=== PATIENT | female | born 1990 | race Hispanic/Latino ===

== ENCOUNTER 2018-03-17 07:47 | Emergency (ER) | payer SELFPAY ==
[2018-03-17] MEDS ORDERED: ONDANSETRON 4 MG (ODT) TAB ONE (08:00)
--- NOTE | 2018-03-17 08:27 | EDPHYS ---
Physician Documentation [facility] Name: Edith Troy Age: 27 yrs Sex: Female : 1990 Arrival Date: 03/17/2018 Time: 07:50 Bed 5 Private MD: None, None ED Physician Fuad Fuentes HPI: 03/17 07:59 This 27 yrs old Female presents to ER via Unassigned with complaints of rn Abdominal Pain, Diarrhea. 07:59 The patient presents to the emergency department with nausea, vomiting, diarrhea, rn abdominal pain, of the epigastric area and abdomen diffusely. Onset: The symptoms/episode began/occurred 2 day(s) ago. Possible causes: unknown. Associated signs and symptoms: Pertinent positives: abdominal pain, diarrhea, nausea, vomiting, Pertinent negatives: fever, GI bleeding. Severity of symptoms: At their worst the symptoms were mild in the emergency department the symptoms are unchanged. The patient has experienced similar episodes in the past. Reports nausea/vomiting/diarrhea, mild upper abd pain that moves everywhere, describes as cramping, intermittent, states feels like has stomach virus but came here because for her job needs a doctors note or she will get fired for not going to work, pain not worse with walking or change in position. . 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 tw2 Historical: - Allergies: 08:03 NKDA; tw2 - Home Meds: 08:03 None [Active]; tw2 - PMHx: 08:03 Asthma; tw2 - PSHx: 08:03 Cholecystectomy; tw2 - Immunization history:: Adult Immunizations up to date. - Family history:: not pertinent. - Social history:: Smoking status: Patient/guardian denies using tobacco. - Hospitalizations: : No recent hospitalization is reported. ROS: 07:59 Constitutional: Negative for fever, chills, and weight loss, Eyes: Negative for injury, rn pain, redness, and discharge, Neck: Negative for injury, pain, and swelling, Cardiovascular: Negative for chest pain, palpitations, and edema, Respiratory: Negative for shortness of breath, cough, wheezing, and pleuritic chest pain, Abdomen/GI: + abd pain/nausea/vomiting/diarrhea MS/Extremity: Negative for injury and deformity, Skin: Negative for injury, rash, and discoloration, Neuro: Negative for headache, weakness, numbness, tingling, and seizure. Exam: 07:59 Constitutional: This is a well developed, well nourished patient who is awake, alert, rn and in no acute distress. Head/Face: Normocephalic, atraumatic. Eyes: Pupils equal round and reactive to light, extra-ocular motions intact. Lids and lashes normal. Conjunctiva and sclera are non-icteric and not injected. Cornea within normal limits. Periorbital areas with no swelling, redness, or edema. Cardiovascular: Regular rate. No gallops, murmurs, or rubs. Respiratory: Lungs have equal breath sounds bilaterally, clear to auscultation. No increased work of breathing, no retractions or nasal flaring. Abdomen/GI: soft, mild epigastric abd tenderness, no rebound, no peritoneal signs, no masses Skin: Warm, dry with normal turgor. Normal color with no rashes, no lesions, and no evidence of cellulitis. MS/ Extremity: Pulses equal, no cyanosis. Neurovascular intact. Full, normal range of motion. Equal circumference. Neuro: Awake and alert, GCS 15, oriented to person, place, time, and situation. Cranial nerves II-XII grossly intact. Motor strength 5/5 in all extremities. Sensory grossly intact. Vital Signs: 07:59 BP 147 / 88; Pulse 87; Resp 16; Temp 97.7(O); Pulse Ox 100% on R/A; Pain 3/10; hb 08:30 BP 126 / 82; Pulse 77; Resp 17; Pulse Ox 100% on R/A; tw2 MDM: 07:51 Patient medically screened. rn 08:24 Differential diagnosis: Nonspecific abd pain, gastritis, viral gastroenteritis, rn gastroenteritis. Data reviewed: vital signs, nurses notes, lab test result(s), and as a result, I will discharge patient. Counseling: I had a detailed discussion with the patient and/or guardian regarding: the historical points, exam findings, and any diagnostic results supporting the discharge/admit diagnosis, lab results, the need for outpatient follow up, to return to the emergency department if symptoms worsen or persist or if there are any questions or concerns that arise at home. Special discussion: Based on the patient's Hx, exam, and Dx evaluation, there is no indication for emergent surgery or inpatient Tx. It is understood by the patient/guardian that if the Sx's persist or worsen they need to return immediately for re-evaluation. I discussed with the patient/guardian in detail that at this point there is no indication for admission to the hospital. It is understood, however, that if the symptoms persist or worsen the patient needs to return immediately for re-evaluation. ED course: Pt reports mild burning on urination, last cycle 2 weeks ago, UPT neg, no peritoneal signs on exam, story and exam more consistent with gastroenteritis, will prescribe abx for UTI, and dc with zofran and return precautions. . 03/17 08:16 Order name: Urine Dipstick--Ancillary (enter results) [facility] 03/17 08:16 Order name: Urine --Ancillary (enter results) [facility] 03/17 07:59 Order name: Urine Dipstick-Ancillary (obtain specimen); Complete Time: 08:07 rn 03/17 07:59 Order name: Urine Test (obtain specimen); Complete Time: 08:07 rn Administered Medications: 08:05 Drug: Zofran 4 mg Route: PO; tw2 08:31 Follow up: Response: No adverse reaction; Nausea is decreased tw2 Disposition: 03/17/18 08:26 Discharged to Home. Impression: Upper abdominal pain, unspecified, Vomiting, Diarrhea, unspecified, Urinary tract infection, site not specified. - Condition is Stable. - Discharge Instructions: Abdominal Pain, Adult, Diarrhea, Nausea and Vomiting, Urinary Tract Infection, Viral Gastroenteritis. - Prescriptions for Zofran ODT 4 mg Oral tablet,disintegrating - place 1 tablet by TRANSLINGUAL route every 8-10 hours As needed; 20 tablet. Cipro 500 mg Oral Tablet - take 1 tablet by ORAL route every 12 hours for 7 days; 14 tablet. - Medication Reconciliation Form, Thank You Letter, Antibiotic Education, Prescription Opioid Use, Work release form form. - Follow up: Private Physician; When: As needed; Reason: Recheck today's complaints, Re-evaluation by your physician. - Problem is new. - Symptoms have improved. Signatures: Dispatcher [employer] EDMS Fuad Fuentes MD MD rn Wise, Tara, RN RN tw2
--- NOTE | 2018-03-17 08:27 | ER ---
Nurse's Notes [facility] Name: Edith Troy Age: 27 yrs Sex: Female : 1990 Arrival Date: 03/17/2018 Time: 07:50 Bed 5 Private MD: None, None Diagnosis: Upper abdominal pain, unspecified;Vomiting;Diarrhea, unspecified;Urinary tract infection, site not specified Presentation: 03/17 08:01 Presenting complaint: Patient states: N/D and abdominal cramping x 2 days. Transition hb of care: patient was not received from another setting of care. Onset of symptoms was March 16, 2018. Initial Sepsis Screen: Does the patient meet any 2 criteria? No. Patient's initial sepsis screen is negative. Does the patient have a suspected source of infection? No. Patient's initial sepsis screen is negative. Care prior to arrival: None. 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 tw2 Historical: - Allergies: 08:03 NKDA; tw2 - Home Meds: 08:03 None [Active]; tw2 - PMHx: 08:03 Asthma; tw2 - PSHx: 08:03 Cholecystectomy; tw2 - Immunization history:: Adult Immunizations up to date. - Family history:: not pertinent. - Social history:: Smoking status: Patient/guardian denies using tobacco. - Hospitalizations: : No recent hospitalization is reported. Screenin:01 Abuse screen: Denies threats or abuse. Nutritional screening: No deficits noted. tw2 Tuberculosis screening: No symptoms or risk factors identified. Fall Risk None identified. Assessment: 08:03 General: Appears in no apparent distress. obese, Behavior is calm, cooperative, tw2 appropriate for age. Pain: Complains of pain in abdomen diffusely. Neuro: Level of Consciousness is awake, alert, obeys commands, Oriented to person, place, time, situation. Cardiovascular: Denies chest pain, shortness of breath, Heart tones S1 S2 Capillary refill < 3 seconds Patient's skin is warm and dry. Respiratory: Airway is patent Respiratory effort is even, unlabored, Respiratory pattern is regular, symmetrical, Breath sounds are clear bilaterally. GI: Bowel sounds present X 4 quads. Abd is soft X 4 quads Reports nausea. : No signs and/or symptoms were reported regarding the genitourinary system. EENT: No signs and/or symptoms were reported regarding the EENT system. Derm: No signs and/or symptoms reported regarding the dermatologic system. Skin is intact, is healthy with good turgor, Skin temperature is warm. Musculoskeletal: Range of motion: intact in all extremities. 08:30 Reassessment: Patient appears in no apparent distress at this time. No changes from tw2 previously documented assessment. Patient and/or family updated on plan of care and expected duration. Pain level reassessed. Patient is alert, oriented x 3, equal unlabored respirations, skin warm/dry/pink. Patient states feeling better. Vital Signs: 07:59 BP 147 / 88; Pulse 87; Resp 16; Temp 97.7(O); Pulse Ox 100% on R/A; Pain 3/10; hb 08:30 BP 126 / 82; Pulse 77; Resp 17; Pulse Ox 100% on R/A; tw2 ED Course: 07:50 Patient arrived in ED. mr 07:50 None, None is Private Physician. mr 07:51 Fuad Fuentes MD is Attending Physician. rn 08:01 Bed in low position. Call light in reach. Pulse ox on. NIBP on. tw2 08:02 Triage completed. hb 08:04 Arm band placed on. tw2 08:04 No provider procedures requiring assistance completed. Patient did not have IV access tw2 during this emergency room visit. 08:06 Sydnie Wyatt, RN is Primary Nurse. tw2 Administered Medications: 08:05 Drug: Zofran 4 mg Route: PO; tw2 08:31 Follow up: Response: No adverse reaction; Nausea is decreased tw2 Outcome: 08:26 Discharge ordered by . rn 08:31 Discharged to home ambulatory. tw2 08:31 Condition: stable 08:31 Discharge instructions given to patient, Instructed on discharge instructions, follow up and referral plans. medication usage, Demonstrated understanding of instructions, follow-up care, medications, Prescriptions given X 2. 08:31 Patient left the ED. tw2 Signatures: Gemma Babb Fuad Fuentes MD MD rn Baxter, Heather, RN RN hb Wise, Tara, RN RN tw2 Corrections: (The following items were deleted from the chart) 08:00 08:00 General: Appears hb hb
[2018-03-17 08:46] VITALS: TEMP 97.7; O2SAT 100
[2018-03-17 08:48] VITALS: BP 126/82
[2018-03-17 09:54] LABS: Urine Blood 2+ (NEG); Urine Glucose NEGATIVE (NEG); Urine Protein 2+ (NEG); Urine Specific Gravity >1.030 (1.005-1.030); Urine pH 5.5 (5.0-7.0)
== END 2018-03-17 08:31 | disposition home or self-care (01) ==
LOC: ER 07:47
DX: N39.0 Urinary tract infection, site not specified (principal); R11.10 Vomiting, unspecified; R19.7 Diarrhea, unspecified
CPT/HCPCS: 81003; 81025; 99283

== ENCOUNTER 2018-07-06 17:21 | Emergency (ER) | payer SELFPAY ==
[2018-07-06] MEDS ORDERED: KETOROLAC 30 MG/ML INJ ONE (18:30)
[2018-07-06] MEDS ORDERED: ONDANSETRON 4 MG/2 ML VIAL ONE (18:31)
[2018-07-06] MEDS ORDERED: NA CHLORIDE 0.9% 1,000 ML ONE (18:31)
[2018-07-06 19:03] LABS: BUN Blood Urea Nitrogen 7 mg/dL (7-18); Bicarbonate 25 mmol/L (21-32); Glucose Level 107 mg/dL (74-106); Potassium 3.9 mmol/L (3.5-5.1); Sodium Level 140 mmol/L (136-145)
[2018-07-06 19:09] LABS: Absolute Lymphocytes (CBC) 1.9 K/uL (0.7-4.9); Absolute Monocytes 0.6 K/uL (0.1-1.3); Absolute Neutrophil 5.7 K/uL (1.8-8.0); Basophils % 0.5 % (0-1.3); Eosinophils % 1.6 % (0-4.4); Hematocrit 37.3 % (36.0-45.0); Lymphocytes % 22.6 % (15.3-44.8); MCH 28.7 pg (27.0-35.0); MCV 85.6 fL (80-100); MPV 8.7 fL (7.6-11.3); Monocytes % 7.6 % (3.3-12.3); RBC Red Blood Cell Count 4.36 M/uL (3.86-4.86)
[2018-07-06] MEDS ORDERED: CEFTRIAXONE/SWI 1gm 1 GM/10 ML SYR ONE (19:23)
[2018-07-06 19:25] LABS: Urine Blood TRACE (NEG); Urine Glucose NEGATIVE (NEG); Urine Protein NEGATIVE (NEG); Urine Specific Gravity >1.030 (1.005-1.030)
--- NOTE | 2018-07-06 19:31 | RAD REPORT ---
EXAM DESCRIPTION: CT - Stone Protocol - 07/06/2018 7:09 pm CLINICAL HISTORY: Abdominal pain, flank pain, vaginal pressure, urinary frequency COMPARISON: None. TECHNIQUE: Axial 5 mm thick images were obtained without oral or IV contrast. The [id number] span s the entirety of the system partially obscuring uppermost abdomen and lung bases. All CT scans are performed using dose optimization technique as appropriate and may include automated exposure control or mA/KV adjustment according to patient size. FINDINGS: No hydronephrosis is present and no obstructing ureteral calculi. No suspicious renal mass es. Isodense masses and pyelonephritis are not excluded on a stone protocol CT scan. Urinary bladder is mostly contracted limiting assessment. No bladder calculi. Uterus and ovaries show no suspicious f indings. No fallopian tube dilatation. Pelvic floor phleboliths are present. Imaged portions of the liver, spleen and pancreas show no suspicious findings on non-contrast imaging . Liver shows fatty infiltration attenuation. Cholecystectomy clips are present. No biliary tree dila tation. No significant adrenal finding. No suspicious bowel findings. No hernia, mass or bulky lymphadenopathy noted. No free air, free fluid or inflammatory stranding. No significant bony abnormality. IMPRESSION: No hydronephrosis, obstructing calculus or other acute finding. Bladder is only parti ally filled limiting assessment. Isodense masses and pyelonephritis are not excluded on stone protocol technique. No acute GI process. Liver shows fatty infiltration.
--- NOTE | 2018-07-06 20:07 | EDPHYS ---
Physician Documentation [facility] Name: Edith Troy Age: 27 yrs Sex: Female : 1990 Arrival Date: 07/06/2018 Time: 17:24 Bed 2 Private MD: None, None ED Physician Amilcar Rodriguez HPI: 07/06 18:59 This 27 yrs old Female presents to ER via Ambulatory with complaints of amy Vaginal Bleeding, Low Back Pain. 18:59 The patient presents with flank pain, on the right, pelvic pain, that is located in/on amy the suprapubic area, vaginal bleeding that is light, moderate. Onset: The symptoms/episode began/occurred 3 day(s) ago. Modifying factors: The symptoms are alleviated by nothing, the symptoms are aggravated by nothing. Associated signs and symptoms: The patient has no apparent associated signs or symptoms. Severity of symptoms: At their worst the symptoms were mild, moderate, in the emergency department the symptoms are unchanged. The patient has not experienced similar symptoms in the past. 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 - Social history:: Smoking status: Patient/guardian denies using tobacco. - Ebola Screening: : No symptoms or risks identified at this time. - Family history:: not pertinent. ROS: 18:59 Constitutional: Negative for fever, chills, and weight loss, Eyes: Negative for injury, amy pain, redness, and discharge, ENT: Negative for injury, pain, and discharge, Neck: Negative for injury, pain, and swelling, Cardiovascular: Negative for chest pain, palpitations, and edema, Respiratory: Negative for shortness of breath, cough, wheezing, and pleuritic chest pain, : Negative for injury, bleeding, discharge, and swelling, MS/Extremity: Negative for injury and deformity, Skin: Negative for injury, rash, and discoloration, Neuro: Negative for headache, weakness, numbness, tingling, and seizure, Psych: Negative for depression, anxiety, suicide ideation, homicidal ideation, and hallucinations, Allergy/Immunology: Negative for hives, rash, and allergies, Endocrine: Negative for neck swelling, polydipsia, polyuria, polyphagia, and marked weight changes, Hematologic/Lymphatic: Negative for swollen nodes, abnormal bleeding, and unusual bruising. 18:59 Abdomen/GI: Positive for abdominal pain, of the suprapubic area and posterior aspect of right lateral abdomen. Exam: 18:59 Constitutional: This is a well developed, well nourished patient who is awake, alert, amy and in no acute distress. Head/Face: Normocephalic, atraumatic. Eyes: Pupils equal round and reactive to light, extra-ocular motions intact. Lids and lashes normal. Conjunctiva and sclera are non-icteric and not injected. Cornea within normal limits. Periorbital areas with no swelling, redness, or edema. ENT: Nares patent. No nasal discharge, no septal abnormalities noted. Tympanic membranes are normal and external auditory canals are clear. Oropharynx with no redness, swelling, or masses, exudates, or evidence of obstruction, uvula midline. Mucous membranes moist. Neck: Trachea midline, no thyromegaly or masses palpated, and no cervical lymphadenopathy. Supple, full range of motion without nuchal rigidity, or vertebral point tenderness. No Meningismus. Chest/axilla: Normal chest wall appearance and motion. Nontender with no deformity. No lesions are appreciated. Cardiovascular: Regular rate and rhythm with a normal S1 and S2. No gallops, murmurs, or rubs. Normal PMI, no JVD. No pulse deficits. Respiratory: Lungs have equal breath sounds bilaterally, clear to auscultation and percussion. No rales, rhonchi or wheezes noted. No increased work of breathing, no retractions or nasal flaring. Female : Normal external genitalia. Skin: Warm, dry with normal turgor. Normal color with no rashes, no lesions, and no evidence of cellulitis. MS/ Extremity: Pulses equal, no cyanosis. Neurovascular intact. Full, normal range of motion. Neuro: Awake and alert, GCS 15, oriented to person, place, time, and situation. Cranial nerves II-XII grossly intact. Motor strength 5/5 in all extremities. Sensory grossly intact. Cerebellar exam normal. Normal gait. 18:59 Abdomen/GI: Inspection: abdomen appears normal, Bowel sounds: normal, Palpation: mild abdominal tenderness, in the suprapubic area. Vital Signs: 17:49 BP 134 / 93; Pulse 95; Resp 16 S; Temp 98.4(O); Pulse Ox 98% on R/A; Weight 96.62 kg 7 (R); Height 5 ft. 5 in. (165.10 cm) (R); Pain 8/10; 19:41 BP 116 / 84; Pulse 84; Resp 18; Temp 98; Pulse Ox 98% on R/A; Pain 4/10; ea 20:49 BP 118 / 77; Pulse 78; Resp 16; Pulse Ox 99% ; bp 17:49 Body Mass Index 35.44 (96.62 kg, 165.10 cm) 7 MDM: 18:14 Patient medically screened. [facility] 19:04 Data reviewed: vital signs, nurses notes, lab test result(s), radiologic studies, CT amy scan, ultrasound. 07/06 18:17 Order name: Abo/rh Typing; Complete Time: 19:48 [facility] 07/06 18:17 Order name: Basic Metabolic Panel; Complete Time: 19:48 [facility] 07/06 18:17 Order name: CBC with Diff; Complete Time: 19:48 [facility] 07/06 18:18 Order name: Urine Dipstick--Ancillary (enter results); Complete Time: 19:48 07/06 18:18 Order name: Urine --Ancillary (enter results); Complete Time: 19:48 07/06 18:59 Order name: Urine Culture [facility] 07/06 18:17 Order name: Urine Test (obtain specimen); Complete Time: 18:23 [facility] 07/06 18:17 Order name: US Transvaginal Study (Probe); Complete Time: 20:30 [facility] 07/06 18:59 Order name: CT Stone Protocol; Complete Time: 19:48 [facility] 07/06 19:05 Order name: Test, Serum; Complete Time: 19:48 [facility] 07/06 18:17 Order name: IV Saline Lock; Complete Time: 18:34 [facility] 07/06 18:17 Order name: Labs collected and sent; Complete Time: 18:34 [facility] 07/06 18:17 Order name: NPO; Complete Time: 18:34 [facility] 07/06 18:17 Order name: Urine Dipstick-Ancillary (obtain specimen); Complete Time: 18:23 [facility] Administered Medications: 18:34 Drug: NS 0.9% 1000 ml Route: IV; Rate: 1 bolus; Site: right forearm; mg2 20:51 Follow up: IV Status: Completed infusion; IV Intake: 1000ml bp 18:34 Drug: TORadol 30 mg Route: IVP; Site: right forearm; mg2 20:51 Follow up: Response: Pain is decreased bp 18:34 Drug: Zofran 4 mg Route: IVP; Site: right forearm; mg2 20:50 Follow up: Response: Nausea is decreased bp 20:02 Drug: Rocephin - (cefTRIAXone) 1 grams Route: IVPB; Infused Over: 30 mins; Site: right ea antecubital; 20:50 Follow up: IV Status: Completed infusion bp Disposition: 07/06/18 20:07 Discharged to Home. Impression: Pelvic and perineal pain, Abnormal uterine and vaginal bleeding, unspecified, Dysmenorrhea, unspecified. - Condition is Stable. - Discharge Instructions: Abnormal Uterine Bleeding, Dysmenorrhea, Pelvic Pain, Female, Pelvic Pain, Female, [id number], Pelvic Rest, Dysmenorrhea, [id number]. - Prescriptions for Tylenol- Codeine #3 300-30 mg Oral Tablet - take 2 tablets by ORAL route every 6 hours As needed; 26 tablet. Cipro 500 mg Oral Tablet - take 1 tablet by ORAL route every 12 hours for 7 days; 14 tablet. Motrin IB 200 mg Oral Tablet - take 2 tablet by ORAL route every 6 hours As needed as needed with food; 30 tablet. - Medication Reconciliation Form, Thank You Letter, Antibiotic Education, Prescription Opioid Use form. - Follow up: Private Physician; When: 2 - 3 days; Reason: Recheck today's complaints, Continuance of care, Re-evaluation by your physician. Follow up: Mini Rekhi; When: 2 - 3 days; Reason: Recheck today's complaints, Re-evaluation by your physician. - Problem is new. - Symptoms have improved. Signatures: Dispatcher [employer] EDAmilcar Ba MD MD cha Therrien, Shelly, RECREATIONAL LEADER-C RECREATIONAL LEADER-Csnw Vicky Venegas RN RN jl7 Marisabel Barrios RN RN Pipe Felix, RN RN bp Virgilio Torres, RN RN mg2 Corrections: (The following items were deleted from the chart) 20:52 20:07 07/06/2018 20:07 Discharged to Home. Impression: Pelvic and perineal pain; bp Abnormal uterine and vaginal bleeding, unspecified; Dysmenorrhea, unspecified. Condition is Stable. Discharge Instructions: Abnormal Uterine Bleeding, Dysmenorrhea, Pelvic Pain, Female, Pelvic Pain, Female, [id number], Dysmenorrhea, [id number]-[id number], Pelvic Rest. Prescriptions for Tylenol-Codeine #3 300-30 mg Oral Tablet - take 2 tablets by ORAL route every 6 hours As needed; 26 tablet, Cipro 500 mg Oral Tablet - take 1 tablet by ORAL route every 12 hours for 7 days; 14 tablet, Motrin IB 200 mg Oral Tablet - take 2 tablet by ORAL route every 6 hours As needed as needed with food; 30 tablet. and Forms are Medication Reconciliation Form, Thank You Letter, Antibiotic Education, Prescription Opioid Use. Follow up: Private Physician; When: 2 - 3 days; Reason: Recheck today's complaints, Continuance of care, Re-evaluation by your physician. Follow up: Mini Rekhi; When: 2 - 3 days; Reason: Recheck today's complaints, Re-evaluation by your physician. Problem is new. Symptoms have improved. snw
--- NOTE | 2018-07-06 20:07 | ER ---
Nurse's Notes [facility] Name: Edith Troy Age: 27 yrs Sex: Female : 1990 Arrival Date: 07/06/2018 Time: 17:24 Bed 2 Private MD: None, None Diagnosis: Pelvic and perineal pain;Abnormal uterine and vaginal bleeding, unspecified;Dysmenorrhea, unspecified Presentation: 07/06 17:45 Presenting complaint: Patient states: Period 2 weeks ago, then spotting for the past jl7 week then yesterday began feeling vaginal pressure and today my back has been hurting. Reports urinary frequency, right sided back pain. Transition of care: patient was not received from another setting of care. Onset of symptoms was July 05, 2018. Risk Assessment: Do you want to hurt yourself or someone else? Patient reports no desire to harm self or others. Initial Sepsis Screen: Does the patient meet any 2 criteria? No. Patient's initial sepsis screen is negative. Does the patient have a suspected source of infection? No. Patient's initial sepsis screen is negative. Care prior to arrival: None. 17:45 Method Of Arrival: Ambulatory [facility] 17:45 Acuity: TEJ 3 jl7 Triage Assessment: 17:49 General: Appears in no apparent distress. uncomfortable, Behavior is calm, cooperative, jl7 appropriate for age. Pain: Complains of pain in vagina Pain currently is 8 out of 10 on a pain scale. Quality of pain is described as pressure, Pain began 1 day ago. Is continuous. Neuro: Level of Consciousness is awake, alert, obeys commands, Oriented to person, place, time, situation. Cardiovascular: Patient's skin is warm and dry. Respiratory: Airway is patent Respiratory effort is even, unlabored, Respiratory pattern is regular, symmetrical. : Reports vaginal bleeding that is bright red, brown, spotty. Derm: Skin is pink, warm \T\ dry. [employer] WORK: 17:49 LMP 06/24/2018 jl7 18:59 2, Full Term 2, Premature 0, 0, Living 0 amy Historical: - Allergies: 17:49 NKDA; jl7 - Home Meds: 17:49 None [Active]; jl7 - PMHx: 17:49 Asthma; jl7 - PSHx: 17:49 Cholecystectomy; jl7 - Immunization history:: Adult Immunizations up to date. - Social history:: Smoking status: Patient/guardian denies using tobacco. - Ebola Screening: : No symptoms or risks identified at this time. - Family history:: not pertinent. Screenin:12 Abuse screen: Denies threats or abuse. Denies injuries from another. Nutritional mg2 screening: No deficits noted. Tuberculosis screening: No symptoms or risk factors identified. Fall Risk None identified. Assessment: 18:12 General: Appears in no apparent distress. comfortable, Behavior is calm, cooperative. mg2 Pain: Complains of pain in lower back Pain does not radiate. Pain currently is 8 out of 10 on a pain scale. Quality of pain is described as aching, Pain began gradually, 1 day ago. Is intermittent. Neuro: Level of Consciousness is awake, alert, obeys commands, Oriented to person, place, time, situation. Cardiovascular: Capillary refill < 3 seconds Patient's skin is warm and dry. Respiratory: Airway is patent Respiratory effort is even, unlabored, Respiratory pattern is regular, symmetrical. GI: No signs and/or symptoms were reported involving the gastrointestinal system. : Reports vaginal bleeding that is spotty. EENT: No signs and/or symptoms were reported regarding the EENT system. Derm: Skin is intact, Skin is pink, warm \T\ dry. normal. Musculoskeletal: Circulation, motion, and sensation intact. 19:05 Reassessment: Pt taken to CT. ea 19:15 Reassessment: Pt returned form CT. ea 19:20 Reassessment: Pt taken to ultrasound. ea 19:45 Reassessment:. General: Appears in no apparent distress. comfortable, Behavior is calm, ea cooperative, appropriate for age. Pain: Complains of pain in suprapubic area. Neuro: Level of Consciousness is awake, alert, obeys commands, Oriented to person, place, time, situation. Cardiovascular: Patient's skin is warm and dry. Respiratory: Airway is patent Respiratory effort is even, unlabored, Respiratory pattern is regular, symmetrical, Breath sounds are clear bilaterally. GI: No signs and/or symptoms were reported involving the gastrointestinal system. EENT: No signs and/or symptoms were reported regarding the EENT system. Derm: Skin is intact, Skin is pink, warm \T\ dry. 19:45 Musculoskeletal: Circulation, motion, and sensation intact. ea 20:48 Reassessment: PT D/C HOME AMBULATORY, DX WITH DYSMENORRHEA AND NONSPECIFIC PELVIC PAIN. bp Vital Signs: 17:49 BP 134 / 93; Pulse 95; Resp 16 S; Temp 98.4(O); Pulse Ox 98% on R/A; Weight 96.62 kg jl7 (R); Height 5 ft. 5 in. (165.10 cm) (R); Pain 8/10; 19:41 BP 116 / 84; Pulse 84; Resp 18; Temp 98; Pulse Ox 98% on R/A; Pain 4/10; ea 20:49 BP 118 / 77; Pulse 78; Resp 16; Pulse Ox 99% ; bp 17:49 Body Mass Index 35.44 (96.62 kg, 165.10 cm) jl7 ED Course: 17:24 Patient arrived in ED. sb2 17:24 None, None is Private Physician. sb2 17:49 Triage completed. jl7 17:49 Arm band placed on right wrist. jl7 18:06 Bed in low position. Call light in reach. Side rails up X 1. Warm blanket given. Pillow jp3 given. Pulse ox on. NIBP on. 18:06 Urine collected: clean catch specimen, clear, carmen colored. jp3 18:11 Virgilio Torres, GOMEZ is Primary Nurse. mg2 18:14 Amilcar Rodriguez MD is Attending Physician. amy 18:35 Inserted saline lock: 22 gauge in right forearm, using aseptic technique. Blood mg2 collected. by shampoo technician Price. 18:38 Initial lab(s) drawn, by ri, sent to lab. jp3 19:01 Patient moved to [place] via wheelchair. jg1 19:08 CT completed. Patient tolerated procedure well. Patient moved back from [place]. nj 19:09 CT Stone Protocol In Process Unspecified. EDMS 19:39 US Transvaginal Study (Probe) In Process Unspecified. EDMS 20:07 Zoila Lincoln MD is Referral Physician. snw 20:30 [facility]C [facility] snw 20:49 No provider procedures requiring assistance completed. IV discontinued, intact, bp bleeding controlled, No redness/swelling at site. Pressure dressing applied. Administered Medications: 18:34 Drug: NS 0.9% 1000 ml Route: IV; Rate: 1 bolus; Site: right forearm; mg2 20:51 Follow up: IV Status: Completed infusion; IV Intake: 1000ml bp 18:34 Drug: TORadol 30 mg Route: IVP; Site: right forearm; mg2 20:51 Follow up: Response: Pain is decreased bp 18:34 Drug: Zofran 4 mg Route: IVP; Site: right forearm; mg2 20:50 Follow up: Response: Nausea is decreased bp 20:02 Drug: Rocephin - (cefTRIAXone) 1 grams Route: IVPB; Infused Over: 30 mins; Site: right ea antecubital; 20:50 Follow up: IV Status: Completed infusion bp Intake: 20:51 IV: 1000ml; Total: 1000ml. bp Outcome: 20:07 Discharge ordered by . snw 20:49 Discharged to home ambulatory. bp 20:49 Condition: stable 20:49 Discharge instructions given to patient, Instructed on discharge instructions, follow up and referral plans. medication usage, Demonstrated understanding of instructions, follow-up care, medications, Prescriptions given X 3. 20:52 Patient left the ED. bp Signatures: Dispatcher [employer] EDMS Amilcar Rodriguez MD MD cha Therrien, Shelly, FLOAT TENDER-C FLOAT TENDER-Csnw Gricel Echeverria jAngel Medina Jahala, RN RN jl7 Marisabel Barrios RN Pipe Goetz ea, RN RN Maria Luz Garcia sb2 Virgilio Torres, GOMEZ RN mg2 Everett Roman jp3
--- NOTE | 2018-07-06 20:22 | RAD REPORT ---
EXAM DESCRIPTION: US - Transvaginal Study Probe - 07/06/2018 7:40 pm CLINICAL HISTORY: Abdominal pain, pelvic pain Preliminary findings provided at the time of the study. COMPARISON: None. TECHNIQUE: Endovaginal sonography was performed. FINDINGS: Endometrium is 2-3 mm. No focal endometrial abnormality. Uterus is 8.6 x 4.7 x 5.6 cm. No myometrial mass. No fluid or blood in the cul-de-sac. Both ovaries are normal in size. Normal for age follicles are seen in the ovaries. Doppler evaluation shows a normal ovarian stroma blood flow patte rn. IMPRESSION: Negative endovaginal pelvic ultrasound.
[2018-07-06 22:03] VITALS: TEMP 98
[2018-07-06 22:04] VITALS: BP 118/77; O2SAT 99
== END 2018-07-06 20:52 | disposition home or self-care (01) ==
LOC: ER 17:21
DX: N93.9 Abnormal uterine and vaginal bleeding, unspecified (principal); N94.6 Dysmenorrhea, unspecified
CPT/HCPCS: 36415; 74176; 76377; 76830; 80048; 81003; 81025; 84703; 85025; 86900; 86901; 87086; 87088; 96361; 96365; 96375; 99284; J0696; J2405; J7030

== ENCOUNTER 2018-09-30 10:11 | Emergency (ER) | payer SELFPAY ==
--- NOTE | 2018-09-30 12:50 | RAD REPORT ---
EXAM DESCRIPTION: RAD - Chest Pa And Lat (2 Views) - 09/30/2018 12:22 pm CLINICAL HISTORY: Dyspnea COMPARISON: None. TECHNIQUE: PA and lateral views of the chest were obtained. FINDINGS: The lungs are clear of infectious or aspiration pneumonia findings. No pulmonary edema or acute lung parenchymal process. Heart size is normal and central vasculature is within normal limit s. No pleural effusion or pneumothorax seen. No acute bony finding noted. No aortic abnormality. IMPRESSION: No acute cardiopulmonary process.
--- NOTE | 2018-09-30 12:51 | RAD REPORT ---
EXAM DESCRIPTION: RAD - Neck Soft Tissue - 09/30/2018 12:21 pm CLINICAL HISTORY: Shortness of breath, dysphagia COMPARISON: None. TECHNIQUE: AP and lateral views of the neck soft tissues obtained. FINDINGS: No prevertebral soft tissue thickening. No foreign body or abnormal air density. Epiglot tis is normal. Tonsillar and adenoid tissue within normal limits as well. No disk or bony abnormali ty. IMPRESSION: Negative soft tissue neck exam.
--- NOTE | 2018-09-30 12:57 | ER ---
Nurse's Notes [facility] Name: Edith Troy Age: 28 yrs Sex: Female : 1990 Arrival Date: 09/30/2018 Time: 10:12 Bed 8 Private MD: None, None Diagnosis: Dyspnea, unspecified Presentation: 09/30 10:15 Presenting complaint: Patient states: approx 45 minutes ago, pt reports she was eating ss chocolate candies that were like "Rolos" and then turned red, had a hard time catching her breath and felt like her throat was possibly closing. Pt reports she feels better, but still feels like she is having a hard time catching her breath. Transition of care: patient was not received from another setting of care. Onset of symptoms was September 30, 2018. Risk Assessment: Do you want to hurt yourself or someone else? Patient reports no desire to harm self or others. Initial Sepsis Screen: Does the patient meet any 2 criteria? No. Patient's initial sepsis screen is negative. Does the patient have a suspected source of infection? No. Patient's initial sepsis screen is negative. Care prior to arrival: None. 10:15 Method Of Arrival: Ambulatory ss 10:15 Acuity: TEJ 4 ss Historical: - Allergies: 10:25 NKDA; ss - Home Meds: 10:25 None [Active]; ss - PMHx: 10:25 Asthma; ss - PSHx: 10:25 Cholecystectomy; ss - Immunization history:: Adult Immunizations. - Social history:: Smoking status: Patient/guardian denies using tobacco. - Ebola Screening: : Patient denies exposure to infectious person Patient denies travel to an Ebola-affected area in the 21 days before illness onset. - Family history:: not pertinent. - Hospitalizations: : No recent hospitalization is reported. Screenin:22 Abuse screen: Denies threats or abuse. Denies injuries from another. Nutritional ph screening: No deficits noted. Tuberculosis screening: No symptoms or risk factors identified. Fall Risk None identified. Assessment: 10:41 General: Appears in no apparent distress. comfortable, Behavior is calm, cooperative, ph appropriate for age. Pain: Denies pain. Neuro: Level of Consciousness is awake, alert, obeys commands, Oriented to person, place, time, situation, Denies weakness dizziness, difficulty swallowing. Cardiovascular: Capillary refill < 3 seconds in bilateral fingers Patient's skin is warm and dry. Respiratory: Reports shortness of breath Airway is patent Respiratory effort is even, unlabored, Respiratory pattern is regular, symmetrical, Breath sounds are clear bilaterally. GI: No signs and/or symptoms were reported involving the gastrointestinal system. Derm: Skin is intact, is healthy with good turgor, Skin is pink, warm \\T\\ dry. Musculoskeletal: Circulation, motion, and sensation intact. Range of motion: intact in all extremities. 11:35 Reassessment: Patient appears in no apparent distress at this time. Patient and/or ph family updated on plan of care and expected duration. Pain level reassessed. Patient is alert, oriented x 3, equal unlabored respirations, skin warm/dry/pink. Pt resting quietly, continues to report intermittent SOB, Spo2 98% on RA w/ no respiratory distress noted, family at bedside, awaiting Xrays. 13:09 Reassessment: Patient appears in no apparent distress at this time. Patient and/or ph family updated on plan of care and expected duration. Pain level reassessed. Patient is alert, oriented x 3, equal unlabored respirations, skin warm/dry/pink. Pt d/c home. Vital Signs: 10:25 BP 146 / 88; Pulse 85; Resp 16; Pulse Ox 100% ; Weight 95.25 kg; Height 5 ft. 5 in. ss (165.10 cm); Pain 0/10; 11:36 BP 121 / 69; Pulse 80; Resp 18; Pulse Ox 98% on R/A; ph 13:09 BP 127 / 71; Pulse 82; Resp 18; Temp 98.0; Pulse Ox 99% on R/A; ph 10:25 Body Mass Index 34.95 (95.25 kg, 165.10 cm) ED Course: 10:12 Patient arrived in ED. sb2 10:12 None, None is Private Physician. sb2 10:16 Fuad Fuentes MD is Attending Physician. rn 10:21 Madelin Sargent RN is Primary Nurse. ph 10:22 Patient has correct armband on for positive identification. Bed in low position. Call ph light in reach. Side rails up X 1. Pulse ox on. NIBP on. 10:24 Triage completed. ss 10:25 Arm band placed on right wrist. ss 12:04 Patient moved to radiology via wheelchair. jb2 12:20 X-ray completed. Patient tolerated procedure well. Patient moved back from radiology. jb2 12:21 XRAY Chest Pa And Lat (2 Views) In Process Unspecified. EDMS 12:21 XRAY Neck Soft Tissue In Process Unspecified. EDMS 13:09 No provider procedures requiring assistance completed. Patient did not have IV access ph during this emergency room visit. Administered Medications: No medications were administered Outcome: 12:56 Discharge ordered by . rn 13:10 Discharged to home ambulatory, with family. ph 13:10 Condition: good 13:10 Discharge instructions given to patient, Instructed on discharge instructions, follow up and referral plans. Demonstrated understanding of instructions, follow-up care. 13:10 Patient left the ED. ph Signatures: Dispatcher [employer] EDMD Trent Maya jb2 Fuad Fuentes MD MD rn Smirch, Shelby, RN RN ss Hall, Patricia, RN RN Maria Luz Del Toro2
--- NOTE | 2018-09-30 12:57 | EDPHYS ---
Physician Documentation [facility] Name: Edith Troy Age: 28 yrs Sex: Female : 1990 Arrival Date: 09/30/2018 Time: 10:12 Bed 8 Private MD: None, None ED Physician Fuad Fuentes HPI: 09/30 10:50 This 28 yrs old Female presents to ER via Ambulatory with complaints of rn Shortness Of Breath. 10:50 The patient has shortness of breath at rest. Onset: The symptoms/episode began/occurred rn just prior to arrival. Duration: The symptoms are continuous, but are markedly better than the original presentation. Associated signs and symptoms: Pertinent positives: This patient does not have any pertinent positive signs or symptoms associated with shortness of breath. Pertinent negatives: chest pain, non-productive cough, productive cough, diaphoresis, hemoptysis, loss of consciousness. Severity of symptoms: At their worst the symptoms were moderate in the emergency department the symptoms have improved. The patient has not experienced similar symptoms in the past. Reports sob, had just finished eating approx 10 stephanie candies, about 5 min later felt like couldn't breathe, no cough, no chest pain, now remarkably improved, asymptomatic, no fever. . Historical: - Allergies: 10:25 NKDA; ss - Home Meds: 10:25 None [Active]; ss - PMHx: 10:25 Asthma; ss - PSHx: 10:25 Cholecystectomy; ss - Immunization history:: Adult Immunizations. - Social history:: Smoking status: Patient/guardian denies using tobacco. - Ebola Screening: : Patient denies exposure to infectious person Patient denies travel to an Ebola-affected area in the 21 days before illness onset. - Family history:: not pertinent. - Hospitalizations: : No recent hospitalization is reported. ROS: 10:50 Constitutional: Negative for fever, chills, and weight loss, Eyes: Negative for injury, rn pain, redness, and discharge, ENT: Negative for injury, pain, and discharge, Neck: Negative for injury, pain, and swelling, Cardiovascular: Negative for chest pain, palpitations, and edema, Respiratory: Negative for cough, wheezing, and pleuritic chest pain, Abdomen/GI: Negative for abdominal pain, nausea, vomiting, diarrhea, and constipation, MS/Extremity: Negative for injury and deformity, Skin: Negative for injury, rash, and discoloration, Neuro: Negative for headache, weakness, numbness, tingling, and seizure. Exam: 10:50 Constitutional: This is a well developed, well nourished patient who is awake, alert, rn and in no acute distress. Head/Face: Normocephalic, atraumatic. Eyes: Pupils equal round and reactive to light, extra-ocular motions intact. Lids and lashes normal. Conjunctiva and sclera are non-icteric and not injected. Cornea within normal limits. Periorbital areas with no swelling, redness, or edema. ENT: Nares patent. No nasal discharge, no septal abnormalities noted. Oropharynx with no redness, swelling, or masses, exudates, or evidence of obstruction, uvula midline. Mucous membranes moist. Cardiovascular: Regular rate and rhythm with a normal S1 and S2. No gallops, murmurs, or rubs. Normal PMI, no JVD. No pulse deficits. Respiratory: Lungs have equal breath sounds bilaterally, clear to auscultation and percussion. No rales, rhonchi or wheezes noted. No increased work of breathing, no retractions or nasal flaring. Abdomen/GI: Soft, non-tender, with normal bowel sounds. No distension or tympany. No guarding or rebound. No evidence of tenderness throughout. Skin: Warm, dry with normal turgor. Normal color with no rashes, no lesions, and no evidence of cellulitis. MS/ Extremity: Pulses equal, no cyanosis. Neurovascular intact. Full, normal range of motion. Equal circumference. Neuro: Awake and alert, GCS 15, oriented to person, place, time, and situation. Cranial nerves II-XII grossly intact. Motor strength 5/5 in all extremities. Sensory grossly intact. Cerebellar exam normal. Normal gait. Vital Signs: 10:25 BP 146 / 88; Pulse 85; Resp 16; Pulse Ox 100% ; Weight 95.25 kg; Height 5 ft. 5 in. ss (165.10 cm); Pain 0/10; 11:36 BP 121 / 69; Pulse 80; Resp 18; Pulse Ox 98% on R/A; ph 13:09 BP 127 / 71; Pulse 82; Resp 18; Temp 98.0; Pulse Ox 99% on R/A; ph 10:25 Body Mass Index 34.95 (95.25 kg, 165.10 cm) MDM: 10:17 Patient medically screened. rn 12:55 Differential diagnosis: Anxiety Reaction Pneumothorax pulmonary edema, reactive airway rn disease. Data reviewed: vital signs, nurses notes, radiologic studies, plain films, and as a result, I will discharge patient. Counseling: I had a detailed discussion with the patient and/or guardian regarding: the historical points, exam findings, and any diagnostic results supporting the discharge/admit diagnosis, radiology results, the need for outpatient follow up, to return to the emergency department if symptoms worsen or persist or if there are any questions or concerns that arise at home. Response to treatment: the patient's symptoms have resolved after treatment, the patient's condition has returned to base line, the patient is now symptom free. Special discussion: I discussed with the patient/guardian in detail that at this point there is no indication for admission to the hospital. It is understood, however, that if the symptoms persist or worsen the patient needs to return immediately for re-evaluation. 12:56 ED course: Observed here for a few hours, asymptomatic now, ambulating to bathroom, rn unclear etiology, will dc home.. 09/30 10:30 Order name: XRAY Chest Pa And Lat (2 Views); Complete Time: 12:53 rn 09/30 10:30 Order name: XRAY Neck Soft Tissue; Complete Time: 12:53 rn Administered Medications: No medications were administered Disposition: 09/30/18 12:56 Discharged to Home. Impression: Dyspnea, unspecified. - Condition is Stable. - Discharge Instructions: Shortness of Breath. - Medication Reconciliation Form, Thank You Letter, Antibiotic Education, Prescription Opioid Use, Work release form form. - Follow up: Private Physician; When: As needed; Reason: Recheck today's complaints, Re-evaluation by your physician. - Problem is new. - Symptoms have improved. Signatures: Dispatcher [employer] EDMS Fuad Fuentes MD MD rn Smirch, Shelby, RN RN ss Hall, Patricia, RN RN ph Corrections: (The following items were deleted from the chart) 13:10 12:56 09/30/2018 12:56 Discharged to Home. Impression: Dyspnea, unspecified. Condition ph is Stable. Forms are Medication Reconciliation Form, Thank You Letter, Antibiotic Education, Prescription Opioid Use. Follow up: Private Physician; When: As needed; Reason: Recheck today's complaints, Re-evaluation by your physician. Problem is new. Symptoms have improved. rn
[2018-09-30 13:58] VITALS: TEMP 98
[2018-09-30 14:10] VITALS: BP 124/82; O2SAT 98
== END 2018-09-30 13:10 | disposition home or self-care (01) ==
LOC: ER 10:11
DX: R06.00 Dyspnea, unspecified (principal)
CPT/HCPCS: 70360; 71046; 99283

== ENCOUNTER 2020-01-20 07:36 | Emergency (ER) | payer SELFPAY ==
[2020-01-20 08:04] LABS: Urine Blood TRACE (NEG); Urine Glucose NEGATIVE (NEG); Urine Protein NEGATIVE (NEG)
[2020-01-20] MEDS ORDERED: ONDANSETRON 4 MG/2 ML VIAL ONE (08:09)
[2020-01-20 08:11] LABS: Urine Bacteria <20 /HPF (<20); Urine Culture Reflex Order NOT NEEDED; Urine Mucus 1+ /HPF (NONE SEEN); Urine RBC <5 /HPF (NONE SEEN)
[2020-01-20 08:44] LABS: ALT/SGPT 20 U/L (12-78); AST/SGOT 20 U/L (15-37); Albumin 3.4 g/dL (3.4-5.0); Alkaline Phosphatase 39 U/L (45-117); BUN Blood Urea Nitrogen 6 mg/dL (7-18); Bicarbonate 27 mmol/L (21-32); Bilirubin Total 0.8 mg/dL (0.2-1.0); Glucose Level 99 mg/dL (74-106); Lipase 499 U/L (73-393); Potassium 4.1 mmol/L (3.5-5.1); Protein, Total 7.9 g/dL (6.4-8.2); Sodium Level 138 mmol/L (136-145)
[2020-01-20 08:49] LABS: Absolute Lymphocytes (CBC) 1.7 K/uL (0.7-4.9); Basophils % 0.8 % (0-1.3); Hematocrit 37.9 % (36.0-45.0); Lymphocytes % 24.8 % (15.3-44.8); MPV 8.6 fL (7.6-11.3); RBC Red Blood Cell Count 4.39 M/uL (3.86-4.86)
--- NOTE | 2020-01-20 09:51 | RAD REPORT ---
EXAM DESCRIPTION: CT - Abdomen Pelvis W Contrast - 01/20/2020 9:25 am CLINICAL HISTORY: Abdominal pain COMPARISON: none. TECHNIQUE: Computed axial tomography of the abdomen pelvis was obtained. 100 cc Isovue-300 was admin istered intravenously. Oral contrast was not requested which limits evaluation of bowel. All CT scans are performed using dose optimization technique as appropriate and may include automated exposure control or mA/KV adjustment according to patient size. FINDINGS: Fatty liver The Spleen, pancreas, adrenal and kidneys appear unremarkable. There is no evidence of diverticulitis. Normal appendix Cholecystectomy IMPRESSION: No acute abnormality is displayed.
--- NOTE | 2020-01-20 09:56 | ER ---
Nurse's Notes [facility] Name: Edith Troy Age: 29 yrs Sex: Female : 1990 Arrival Date: 01/20/2020 Time: 07:39 Bed 16 Private MD: Diagnosis: Abdominal pain;Nausea and vomiting Presentation: 01/20 07:41 Chief complaint: Patient states: Upper abdominal pain for 2 weeks. Nausea is more ll1 constant. No fever. [place] uneasy and shaky since yesterday with slight dizziness. Coronavirus screen: The patient has NOT traveled to [place] in the past 14 days. Proceed with normal triage procedures. Ebola Screen: Patient denies travel to an Ebola-affected area in the 21 days before illness onset. No symptoms or risks identified at this time. Initial Sepsis Screen: Does the patient meet any 2 criteria? No. Patient's initial sepsis screen is negative. Does the patient have a suspected source of infection? No. Patient's initial sepsis screen is negative. Risk Assessment: Do you want to hurt yourself or someone else? Patient reports no desire to harm self or others. 07:41 Method Of Arrival: Ambulatory [facility] 07:41 Acuity: TEJ 3 1 08:19 Onset of symptoms was January 06, 2020. 1 Triage Assessment: 08:13 General: Appears in no apparent distress. Behavior is calm, cooperative. Pain: ll1 Complains of pain in epigastric area Pain currently is 3 out of 10 on a pain scale. Quality of pain is described as aching, crampy, Pain began gradually, Is intermittent. Neuro: No deficits noted. Cardiovascular: No deficits noted. Respiratory: No deficits noted. GI: Abdomen is flat, Bowel sounds present X 4 quads. Abd is soft Abdomen is tender to palpation in epigastric area Reports cramping, epigastric pain, intolerance of food, nausea. : No deficits noted. No signs and/or symptoms were reported regarding the genitourinary system. 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 - Social history:: Smoking status: Patient denies any tobacco usage or history of. Patient uses alcohol, only on a social basis. Patient/guardian denies using street drugs. Screenin:45 Abuse screen: Denies threats or abuse. Denies injuries from another. Nutritional ph screening: No deficits noted. Tuberculosis screening: No symptoms or risk factors identified. Fall Risk None identified. Assessment: 08:17 General: Appears in no apparent distress. Behavior is calm, cooperative, See triage ll1 assessment for further details.. Pain: Complains of pain in epigastric area. Neuro: No deficits noted. Cardiovascular: No deficits noted. Respiratory: No deficits noted. GI: Abdomen is flat, Bowel sounds present X 4 quads. Abd is soft Abdomen is tender to palpation in epigastric area Reports cramping, epigastric pain, nausea. : No deficits noted. No signs and/or symptoms were reported regarding the genitourinary system. 09:15 Reassessment: Patient appears in no apparent distress at this time. Patient and/or ll1 family updated on plan of care and expected duration. Pain level reassessed. Patient is alert, oriented x 3, equal unlabored respirations, skin warm/dry/pink. Patient states feeling better. 10:15 Reassessment: Patient appears in no apparent distress at this time. Patient and/or ph family updated on plan of care and expected duration. Pain level reassessed. Patient is alert, oriented x 3, equal unlabored respirations, skin warm/dry/pink. Pt d/c home w/ 4 prescriptions, instructed to follow up w/ PCP. Vital Signs: 07:41 BP 149 / 99; Pulse 89; Resp 18; Temp 97.7(TE); Pulse Ox 100% ; Pain 3/10; ll1 08:15 BP 149 / 99; Pulse 89; Resp 18; Temp 97.7; Pulse Ox 100% ; Pain 3/10; ll1 09:15 BP 131 / 84; Pulse 82; Resp 18; Pulse Ox 99% on R/A; ph 10:19 BP 128 / 76; Pulse 84; Resp 16; Temp 97.8; Pulse Ox 100% on R/A; ph ED Course: 07:39 Patient arrived in ED. as 07:40 Vernon Berman MD is Attending Physician. ps1 07:40 Chiqui Raymond RN is Primary Nurse. ll1 07:53 Triage completed. ll1 07:55 Arm band placed on right wrist. ll1 08:00 Inserted saline lock: 20 gauge in left antecubital area, using aseptic technique. Blood ll1 collected. 08:04 Urine Microscopic [facility] 08:04 Urine --Ancillary (enter results) [facility] 08:04 Urine Dipstick--Ancillary (enter results) [facility] 08:04 Urine collected: clean catch specimen, [facility] 08:05 Patient has correct armband on for positive identification. Bed in low position. [facility] light in reach. Warm blanket given. Pulse ox on. NIBP on. 09:24 CT Abd/Pelvis - IV Contrast Only In Process Unspecified. EDMS 10:16 No provider procedures requiring assistance completed. IV discontinued, intact, ph bleeding controlled, No redness/swelling at site. Pressure dressing applied. Administered Medications: 08:08 Drug: Zofran (Ondansetron) 4 mg Route: IVP; Site: left antecubital; ll1 08:52 Follow up: Response: No adverse reaction; Nausea is decreased ll1 Outcome: 09:55 Discharge ordered by . ps1 10:16 Discharged to home ambulatory. ph 10:16 Condition: good 10:16 Discharge instructions given to patient, Instructed on discharge instructions, follow up and referral plans. medication usage, Demonstrated understanding of instructions, follow-up care, medications, Prescriptions given X 4. 10:24 Patient left the ED. ph Signatures: Dispatcher [employer] EDMS Ioana Joyce Patricia, GOMEZ RN ph Gemma [facility] Vernon Berman MD MD ps1 Lewis, Lynsay RN RN ll1 Corrections: (The following items were deleted from the chart) 10:23 10:19 BP 131 / 84; Pulse 82bpm; Resp 18bpm; Pulse Ox 99% RA; ph ph
--- NOTE | 2020-01-20 09:56 | EDPHYS ---
Physician Documentation [facility] Name: Edith Troy Age: 29 yrs Sex: Female : 1990 Arrival Date: 01/20/2020 Time: 07:39 Bed 16 Private MD: ED Physician Vernon Berman HPI: 01/20 07:51 This 29 yrs old Female presents to ER via Unassigned with complaints of ps1 Abdominal Cramping, Nausea, Fatigue. 07:51 Patient states that over the last 2 weeks she has had intermittent epigastric abdominal ps1 pain which is non-radiating. Pain is rated as mild to moderate and and seems to be associated with food. She is s/p jannette. LMP 2 weeks ago. Sexually active not on OCP. No fever. . 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 - Social history:: Smoking status: Patient denies any tobacco usage or history of. Patient uses alcohol, only on a social basis. Patient/guardian denies using street drugs. ROS: 07:51 Constitutional: Negative for fever, chills, and weight loss, Eyes: Negative for injury, ps1 pain, redness, and discharge, Cardiovascular: Negative for chest pain, palpitations, and edema, Respiratory: Negative for shortness of breath, cough, wheezing, and pleuritic chest pain, MS/Extremity: Negative for injury and deformity, Skin: Negative for injury, rash, and discoloration, Neuro: Negative for headache, weakness, numbness, tingling, and seizure. 07:51 Abdomen/GI: Positive for abdominal pain, nausea and vomiting. Exam: 07:51 Constitutional: This is a well developed, well nourished patient who is awake, alert, ps1 and in no acute distress. Head/Face: Normocephalic, atraumatic. Eyes: Pupils equal round and reactive to light, extra-ocular motions intact. Lids and lashes normal. Conjunctiva and sclera are non-icteric and not injected. ENT: Nares patent. No nasal discharge, no septal abnormalities noted. Tympanic membranes are normal and external auditory canals are clear. Oropharynx with no redness, swelling, or masses, exudates, or evidence of obstruction, uvula midline. Mucous membranes moist. Cardiovascular: Regular rate and rhythm. No gallops, murmurs, or rubs. Normal PMI, no JVD. No pulse deficits. Respiratory: Lungs have equal breath sounds bilaterally, clear to auscultation and percussion. No rales, rhonchi or wheezes noted. No increased work of breathing, no retractions or nasal flaring. Abdomen/GI: Soft, non-tender, with normal bowel sounds. No distension or tympany. No guarding or rebound. No evidence of tenderness throughout. MS/ Extremity: Pulses equal, no cyanosis. Neurovascular intact. Full, normal range of motion. Neuro: Awake and alert, GCS 15, oriented to person, place, time, and situation. Cranial nerves II-XII grossly intact. Sensory grossly intact. Psych: Awake, alert, with orientation to person, place and time. Behavior, mood, and affect are within normal limits. Vital Signs: 07:41 BP 149 / 99; Pulse 89; Resp 18; Temp 97.7(TE); Pulse Ox 100% ; Pain 3/10; ll1 08:15 BP 149 / 99; Pulse 89; Resp 18; Temp 97.7; Pulse Ox 100% ; Pain 3/10; ll1 09:15 BP 131 / 84; Pulse 82; Resp 18; Pulse Ox 99% on R/A; ph 10:19 BP 128 / 76; Pulse 84; Resp 16; Temp 97.8; Pulse Ox 100% on R/A; ph MDM: 07:56 Patient medically screened. ps1 09:56 Differential diagnosis: EPIGASTRIC PAIN, PANCREATITIS, PEPTIC ULCER DISEASE, AND ps1 OTHERS. Data reviewed: vital signs, nurses notes. Counseling: I had a detailed discussion with the patient and/or guardian regarding: the historical points, exam findings, and any diagnostic results supporting the discharge/admit diagnosis, lab results, radiology results, the need for outpatient follow up, for definitive care, a general lot attendant, to return to the emergency department if symptoms worsen or persist or if there are any questions or concerns that arise at home. ED course: 29 y/o F with abdominal pain for weeks. Labs demonstrate elevated lipase (does not meet criteria for acute pancreatitis). 01/20 07:49 Order name: CBC with Diff; Complete Time: 08:56 ps1 01/20 07:49 Order name: CMP; Complete Time: 08:49 ps1 01/20 07:49 Order name: Lipase; Complete Time: 08:49 ps1 01/20 07:53 Order name: Urine Dipstick--Ancillary (enter results); Complete Time: 08:06 eb 01/20 07:53 Order name: Urine --Ancillary (enter results); Complete Time: 08:06 eb 01/20 07:53 Order name: Urine Microscopic Only; Complete Time: 08:30 eb 01/20 07:49 Order name: Urine Dipstick-Ancillary (obtain specimen); Complete Time: 08:04 ps1 01/20 07:49 Order name: Urine Test (obtain specimen); Complete Time: 08:04 ps1 01/20 08:50 Order name: CT Abd/Pelvis - IV Contrast Only; Complete Time: 09:53 ps1 Administered Medications: 08:08 Drug: Zofran (Ondansetron) 4 mg Route: IVP; Site: left antecubital; ll1 08:52 Follow up: Response: No adverse reaction; Nausea is decreased ll1 Disposition: 01/20/20 09:55 Discharged to Home. Impression: Abdominal pain, Nausea and vomiting. - Condition is Stable. - Discharge Instructions: Abdominal Pain, Adult. - Prescriptions for Bentyl 10 mg Oral Capsule - take 1 capsule by ORAL route every 6 hours As needed; 40 capsule. Carafate 1 gram Oral Tablet - take 1 tablet by ORAL route 4 times per day take on an empty stomach, beginning on waking and last dose at bedtime; 100 tablet. Protonix 40 mg Oral Tablet - take 1 tablet by ORAL route once daily; 30 tablet. Zofran 4 mg Oral Tablet - take 1 tablet by ORAL route every 12 hours As needed; 20 tablet. - Work release form, Medication Reconciliation Form, Thank You Letter, Antibiotic Education, Prescription Opioid Use form. - Follow up: Emergency Department; When: As needed; Reason: Fever > 102 F, Worsening of condition. Follow up: Private Physician; When: As needed; Reason: Further diagnostic work-up, Recheck today's complaints, Continuance of care, Re-evaluation by your physician. - Problem is new. - Symptoms are unchanged. Signatures: Dispatcher [employer] Madelin Umanzor RN RN ph Vernon Berman MD MD ps1 Chiqui Raymond RN RN ll1 Corrections: (The following items were deleted from the chart) 10:24 09:55 01/20/2020 09:55 Discharged to Home. Impression: Abdominal pain; Nausea and ph vomiting. Condition is Stable. Forms are Medication Reconciliation Form, Thank You Letter, Antibiotic Education, Prescription Opioid Use. Follow up: Emergency Department; When: As needed; Reason: Fever > 102 F, Worsening of condition. Follow up: Private Physician; When: As needed; Reason: Further diagnostic work-up, Recheck today's complaints, Continuance of care, Re-evaluation by your physician. Problem is new. Symptoms are unchanged. ps1
[2020-01-20 10:51] VITALS: BP 128/76; TEMP 97.8; O2SAT 100
== END 2020-01-20 10:24 | disposition home or self-care (01) ==
LOC: ER 07:36
DX: R11.2 Nausea with vomiting, unspecified (principal)
CPT/HCPCS: 36415; 74177; 80053; 81003; 81015; 81025; 83690; 85025; 96374; 99284; J2405; Q9967

== ENCOUNTER 2021-02-13 11:45 | Emergency (ER) | payer SELFPAY ==
--- OUTSIDE RECORDS SUMMARY | 2021-02-13 11:48 | XMS REPORT | Continuity of Care Document ---
:1990 Author Organization [facility] t Address [address] [place] [address] Care Team Providers Name Role Phone Berman DO Attending Clinician Pob1, Care Clinic Attending Clinician Unavailable Omadrian NURSING STUDENT Attending Clinician Hema NURSING STUDENT Attending Clinician Problems This patient has no known problems. Allergies, Adverse Reactions, Alerts This patient has no known allergies or adverse reactions. Medications This patient has no known medications. Procedures This patient has no known procedures. Encounters Start End Encounter Admission Attending Care Care Encounter Source Date/Time Date/Time Type Type Clinicians Facility Department ID 2020-07-24 2020-07-24 Emergency [facility] [id number] 13:33:00 15:32:00 Vernon Leary [id number] [place] [id number] [place] [id number] 2020-06-07 2020-06-07 Telephone Pob1, Acute [facility] [id number] 00:00:00 00:00:00 [facility] [id number] [place] [id number] [facility] [phone] nal [address] 2020-06-07 2020-06-07 Telephone Erick [facility] [id number] 00:00:00 00:00:00 [facility] [id number] [place] [id number] [place] [phone] nal [address] 2020-06-05 2020-06-05 Urgent Pob1, Acute [facility] [id number] 14:40:00 15:00:00 [facility] [id number] [place] [id number] Profess[facility] [phone] nal 044 [address] 2020-06-05 2020-06-05 Letter Hema, [facility] [id number] 00:00:00 00:00:00 (Out) [facility] [id number] [place] [id number] [facility] [phone] nal 0[address] Results This patient has no known results.
--- NOTE | 2021-02-13 14:42 | ER ---
Nurse's Notes [facility] Name: Edith Troy Age: 30 yrs Sex: Female : 1990 Arrival Date: 02/13/2021 Time: 11:49 Bed Waiting Private MD: Diagnosis: Presentation: 02/13 11:55 Chief complaint: low back and right sided back pain and nausea x 3 days. Coronavirus hb screen: At this time, the client does not indicate any symptoms associated with coronavirus-19. Ebola Screen: No symptoms or risks identified at this time. Initial Sepsis Screen: Does the patient meet any 2 criteria? No. Patient's initial sepsis screen is negative. Does the patient have a suspected source of infection? No. Patient's initial sepsis screen is negative. Risk Assessment: Do you want to hurt yourself or someone else? Patient reports no desire to harm self or others. Onset of symptoms was February 10, 2021. 11:55 Method Of Arrival: Ambulatory hb 11:55 Acuity: TEJ 3 hb Historical: - Allergies: 11:58 NKDA; hb - Home Meds: 11:58 amoxicillin Oral [Active]; ibuprofen 800 mg Oral tab [Active]; hb - PMHx: 11:58 Asthma; hb - PSHx: 11:58 Cholecystectomy; hb - Immunization history:: Adult Immunizations up to date. - Social history:: Smoking status: Patient denies any tobacco usage or history of. Vital Signs: 11:55 BP 142 / 86; Pulse 86; Resp 16; Pulse Ox 98% on R/A; Pain 6/10; hb ED Course: 11:49 Patient arrived in ED. ds1 11:56 Triage completed. hb 11:58 Arm band placed on. hb 12:02 Jose Peralta PA is PHCP. [facility] 12:02 Fuad Fuentes MD is Attending Physician. [facility] 14:37 Jose Peralta PA is PHCP. [facility] 14:37 Fuad Fuentes MD is Attending Physician. [facility] Administered Medications: No medications were administered Outcome: 14:41 Patient left the ED. ll1 Signatures: Jose Peralta PA PA jmm Sanford, Demi ds1 Toya Patten RN RN Chiqui Raymond RN RN 1
--- NOTE | 2021-02-13 14:43 | EDPHYS ---
Physician Documentation [facility] Name: Edith Troy Age: 30 yrs Sex: Female : 1990 Arrival Date: 02/13/2021 Time: 11:49 Bed Waiting Private MD: ED Physician Fuad Fuentes HPI: 02/13 12:29 This 30 yrs old Female presents to ER via Ambulatory with complaints of Back jmm Pain. 12:29 The patient presents with pain that is acute. Onset: The symptoms/episode jmm began/occurred gradually, 3 day(s) ago. The pain radiates to the epigastric area. Associated signs and symptoms: Pertinent negatives: dysuria, fever, vomiting. This is a 30 year old female with a history of asthma that presents to the ED with complaints of back pain in the right thoracic region which will occasionally radiate to the left. Patient states having a similar episode of pain when diagnosed with gallstones. Patient states she has had her gallbladder removed since. Patient states she does have some mild epigastric pain. . Historical: - Allergies: 11:58 NKDA; hb - Home Meds: 11:58 amoxicillin Oral [Active]; ibuprofen 800 mg Oral tab [Active]; hb - PMHx: 11:58 Asthma; hb - PSHx: 11:58 Cholecystectomy; hb - Immunization history:: Adult Immunizations up to date. - Social history:: Smoking status: Patient denies any tobacco usage or history of. ROS: 12:29 Constitutional: Negative for fever, chills, and weight loss, Cardiovascular: Negative jmm for chest pain, palpitations, and edema, Respiratory: Negative for shortness of breath, cough, wheezing, and pleuritic chest pain. 12:29 Abdomen/GI: Positive for abdominal pain, nausea. 12:29 Back: Positive for pain with movement. 12:29 All other systems are negative. Exam: 12:29 Constitutional: This is a well developed, well nourished patient who is awake, alert, jmm and in no acute distress. Head/Face: atraumatic. Eyes: EOMI, no conjunctival erythema appreciated ENT: Moist Mucus Membranes Neck: Trachea midline, Supple Chest/axilla: Normal chest wall appearance and motion. Cardiovascular: Regular rate and rhythm. No edema appreciated Respiratory: Normal respirations, no respiratory distress appreciated 12:29 Skin: General appearance color normal MS/ Extremity: Moves all extremities, no obvious deformities appreciated, no edema noted to the lower extremities Neuro: Awake and alert, normal gait Psych: Behavior is normal, Mood is normal, Patient is cooperative and pleasant 12:29 Abdomen/GI: Inspection: Palpation: soft, in all quadrants. 12:29 Back: right thoracic back pain on palpation. Vital Signs: 11:55 BP 142 / 86; Pulse 86; Resp 16; Pulse Ox 98% on R/A; Pain 6/10; hb MDM: 12:32 Patient medically screened. [facility] 15:15 ED course: Patient was advised of the need for labs due to the character of the pain. [facility] Patient eloped from the ED against medical advice. . 02/13 12:08 Order name: IV Saline Lock [facility] 02/13 12:08 Order name: Labs collected and sent [facility] 02/13 12:08 Order name: Urine Dipstick-Ancillary (obtain specimen) [facility] 02/13 12:08 Order name: Urine Test (obtain specimen) [facility] Administered Medications: No medications were administered Disposition: 14:43 Co-signature as Attending Physician, Fuad Fuentes MD. rn Disposition: 02/13/21 14:41 Patient left the facility post triage evaluation and consult. - Patient left due to unknown. Signatures: Dispatcher [employer] EDMS Jose Peralta PA PA jmm Nieto, Roman, MD MD rn Baxter, Heather, RN RN hb Lewis, Lynsay, RN RN ll1
[2021-02-13 14:49] VITALS: BP 142/86; O2SAT 98
== END 2021-02-13 14:41 | disposition left against medical advice (07) ==
LOC: ER 11:45
DX: R10.13 Epigastric pain (principal); J45.909 Unspecified asthma, uncomplicated
CPT/HCPCS: 99281

== ENCOUNTER 2021-11-06 06:51 | Emergency (ER) | payer SELFPAY ==
--- OUTSIDE RECORDS SUMMARY | 2021-11-06 06:54 | XMS REPORT | Continuity of Care Document ---
:1990 [facility] t Address [address] [place] [address] Care Team Providers Name Role Phone Pcp, Does Not Have A Primary Care Physician Lala Chi DO Attending Clinician Singer GAYTAN Attending Clinician Pob1, Care Clinic Attending Clinician Unavailable Omaghomi COTTON CONVERTER Attending Clinician ANENE Attending Clinician Unavailable Anene COTTON CONVERTER Attending Clinician Payers Payer Name Policy Type Policy Number Effective Date Expiration Date S ource Problems Condition Condition Condition Status Onset Resolution Last Treating Co mments Source Name Details Category Date Date Treatment Clinician Date Other Other Disease Active Overview: Univer s abnormal abnormal 4-24 Formattin ity of Papanicola Papanicola 00:00: g of this [place] ou smear ou smear 00 note Medica l of cervix of cervix might be Br anch and and different cervical cervical from the 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 ) ) Patient reports in 2010 she was told that she needed to follow up her pap every 6 months due to abnormal cells. She states she thought it was at this clinic but there is no record of an abnormal pap here. General General Disease Active Univers counseling counseling 4-24 it y of for for 00:00: [place] initiation initiation 00 Me dical of other of other Branch contracept contracept kojo kojo measures measures Allergies, Adverse Reactions, Alerts Allergy Allergy Status Severity Reaction(s) Onset Inactive Treating Comm ents Source Name Type Date Date Clinician NO KNOWN Drug Active Univers ALLERGIE Class ity of S [facility] [place] [facility] Social History Social Habit Start Date Stop Date Quantity Comments Source Exposure to Not sure [facility] SARS-CoV-2 [place] [facility] (event) Branch Tobacco use and 2021-07-24 2021-07-24 Never used Universit y of exposure 00:00:00 00:00:00 [facility] Alcohol intake 2021-07-24 2021-07-24 Current University 00:00:00 00:00:00 non-drinker of [facility] alcohol Branch (finding) Sex Assigned At [birth year] Universit y of 00:00:00 00:00:00 [facility] Smoking Status Start Date Stop Date Source Never smoker [facility] Medications Ordered Filled Start Stop Current Ordering Indication Dosage Frequency Signature Comments Components Source Medication Medication Date Date Medication? Clinician (SIG) Name Name NaCl 0.9% 2019-0 2020- No 1000mL at 999 Uni vers (NS) bolus 07-24 mL/hr, ity of infusion 20:15: 20:25 1,000 mL, Blake as 1,000 mL 00 :00 IV Medical Infusion, Branch ONCE, 1 dose, 07/24/20 at 1515, STAT ondansetron 2020-0 Yes [id number] 4mg Take 1 Univers 4 mg 8-31 tablet by ity of disintegrat 00:00: mouth [place] ing tablet 00 every 8 Medica l (eight) Branch hours as needed for Nausea and Vomiting (N/V). ondansetron 2020-0 Yes [id number] 4mg Take 1 Univers 4 mg 8-31 tablet by ity of disintegrat 00:00: mouth [place] ing tablet 00 every 8 Medica l (eight) Branch hours as needed for Nausea and Vomiting (N/V). ondansetron 2020-0 Yes [id number] 4mg Take 1 Univers 4 mg 8-31 tablet by ity of disintegrat 00:00: mouth [place] ing tablet 00 every 8 Medica l (eight) Branch hours as needed for Nausea and Vomiting (N/V). cephALEXin 2020-0 2020- No [id number] 500mg Take 1 Univers (KEFLEX) -08-01 capsule by ity of 500 mg 00:00: 04:59 mouth 3 [place] capsule 00 :00 (three) Medical times Branch daily for 7 days. methylPREDN 2018-0 Yes Take by Un malka ISolone 5-22 mouth ity of (MEDROL, 00:00: SEE-INSTRU Blake as KEHINDE,) 4 mg 00 CTIONS. Medica l tablets follow Branch package directions naproxen 2018-0 Yes 500mg Take 1 Univer s (NAPROSYN) 5-22 tablet by ity of 500 mg 00:00: mouth 2 [place] tablet 00 (two) Medical times Branch daily with meals. methylPREDN 2018-0 Yes Take by Un malka ISolone 5-22 mouth ity of (MEDROL, 00:00: SEE-INSTRU Blake as KEHINDE,) 4 mg 00 CTIONS. Medica l tablets follow Branch package directions naproxen 2018-0 Yes 500mg Take 1 Univer s (NAPROSYN) 5-22 tablet by ity of 500 mg 00:00: mouth 2 [place] tablet 00 (two) Medical times Branch daily with meals. methylPREDN 2018-0 Yes Take by Un malka ISolone 5-22 mouth ity of (MEDROL, 00:00: SEE-INSTRU Blake as KEHINDE,) 4 mg 00 CTIONS. Medica l tablets follow Branch package directions naproxen 2018-0 Yes 500mg Take 1 Univer s (NAPROSYN) 5-22 tablet by ity of 500 mg 00:00: mouth 2 [place] tablet 00 (two) Medical times Branch daily with meals. methylPREDN 2018-0 Yes Take by Un malka ISolone 5-22 mouth ity of (MEDROL, 00:00: SEE-INSTRU Blake as KEHINDE,) 4 mg 00 CTIONS. Medica l tablets follow Branch package directions naproxen 2018-0 Yes 500mg Take 1 Univer s (NAPROSYN) 5-22 tablet by ity of 500 mg 00:00: mouth 2 [place] tablet 00 (two) Medical times Branch daily with meals. methylPREDN 2018-0 Yes Take by Un malka ISolone 5-22 mouth ity of (MEDROL, 00:00: SEE-INSTRU Blake as KEHINDE,) 4 mg 00 CTIONS. Medica l tablets follow Branch package directions naproxen 2018-0 Yes 500mg Take 1 Univer s (NAPROSYN) 5-22 tablet by ity of 500 mg 00:00: mouth 2 [place] tablet 00 (two) Medical times Branch daily with meals. methylPREDN 2018-0 Yes Take by Un malka ISolone 5-22 mouth ity of (MEDROL, 00:00: SEE-INSTRU Blake as KEHINDE,) 4 mg 00 CTIONS. Medica l tablets follow Branch package directions naproxen 2018-0 Yes 500mg Take 1 Univer s (NAPROSYN) 5-22 tablet by ity of 500 mg 00:00: mouth 2 [place] tablet 00 (two) Medical times Branch daily with meals. methylPREDN 2018-0 Yes Take by Un malka ISolone 5-22 mouth ity of (MEDROL, 00:00: SEE-INSTRU Blake as KEHINDE,) 4 mg 00 CTIONS. Medica l tablets follow Branch package directions naproxen 2018-0 Yes 500mg Take 1 Univer s (NAPROSYN) 5-22 tablet by ity of 500 mg 00:00: mouth 2 [place] tablet 00 (two) Medical times Branch daily with meals. Immunizations Ordered Filled Immunization Date Status Comments [facility] e Immunization Name Name Rubella 2010-08-06 Completed University of 00:00:00 [facility] Rubella 2010-08-06 Completed University of 00:00:00 [facility] Rubella 2010-08-06 Completed University of 00:00:00 [facility] Rubella 2010-08-06 Completed University of 00:00:00 [facility] Rubella 2010-08-06 Completed University of 00:00:00 [facility] Rubella 2010-08-06 Completed University of 00:00:00 [facility] Rubella 2010-08-06 Completed University of 00:00:00 [facility] Td 2004-11-24 Completed University of 00:00:00 [facility] Td 2004-11-24 Completed University of 00:00:00 [facility] Td 2004-11-24 Completed University of 00:00:00 [facility] Td 2004-11-24 Completed University of 00:00:00 [facility] Td 2004-11-24 Completed University of 00:00:00 [facility] Td 2004-11-24 Completed University of 00:00:00 [facility] 2004-11-24 Completed University of 00:00:00 [facility] Vital Signs Vital Name Observation Time Observation Value Comments Source Systolic blood 2021-07-24 13:30:00 129 mm[Hg] Univer sity of pressure [place] [facility] Diastolic blood 2021-07-24 13:30:00 94 mm[Hg] Unive rsity of pressure [place] [facility] Heart rate 2021-07-24 13:30:00 80 /min [facility] [place] [facility] Body temperature 2021-07-24 13:30:00 36.44 Buffy Univ ers[facility] [place] [facility] Respiratory rate 2021-07-24 13:30:00 18 /min Univ [facility] [place] [facility] Oxygen saturation in 2021-07-24 13:30:00 99 /min University of Arterial blood by [employer] sai Pulse oximetry Branch Systolic blood 2020-07-24 19:30:00 104 mm[Hg] Univer sity of pressure [place] [facility] Diastolic blood 2020-07-24 19:30:00 79 mm[Hg] Unive rsity of pressure [place] [facility] Heart rate 2020-07-24 19:30:00 93 /min [facility]i [facility] [place] [facility] Respiratory rate 2020-07-24 19:30:00 18 /min Univ [facility] [place] [facility] Oxygen saturation in 2020-07-24 19:30:00 98 /min University of Arterial blood by [employer] sai Pulse oximetry Branch Body temperature 2020-07-24 18:31:00 37.22 Buffy [facility] [place] [facility] Body height 2020-07-24 18:31:00 167.6 cm [facility] [place] [facility] Body weight 2020-07-24 18:31:00 97.523 kg [facility] [place] [facility] BMI 2020-07-24 18:31:00 34.70 kg/m2 [facility] [place] [facility] Systolic blood 2020-07-24 19:30:00 104 mm[Hg] Univer sity of pressure [place] [facility] Diastolic blood 2020-07-24 19:30:00 79 mm[Hg] Unive rsity of pressure [place] [facility] Heart rate 2020-07-24 19:30:00 93 /min [facility] [place] [facility] Respiratory rate 2020-07-24 19:30:00 18 /min Univ [facility] [place] [facility] Oxygen saturation in 2020-07-24 19:30:00 98 /min University of Arterial blood by [employer] sai Pulse oximetry Branch Body temperature 2020-07-24 18:31:00 37.22 Buffy [facility] [place] [facility] Body height 2020-07-24 18:31:00 167.6 cm Universi ty of [place] [facility] Body weight 2020-07-24 18:31:00 97.523 kg Universi ty of [place] [facility] BMI 2020-07-24 18:31:00 34.70 kg/m2 Universi ty of [facility] [place] [facility] Systolic blood 2020-06-05 19:43:00 117 mm[Hg] Univer sity of pressure [place] [facility] Diastolic blood 2020-06-05 19:43:00 79 mm[Hg] Unive rsity of pressure [place] [facility] Heart rate 2020-06-05 19:43:00 82 /min Universi ty of [facility] [place] [facility] Body temperature 2020-06-05 19:43:00 36.94 Buffy Univ ersity of [facility] [place] [facility] Respiratory rate 2020-06-05 19:43:00 98 /min Univ ersity of [facility] [place] [facility] Body height 2020-06-05 19:43:00 167.6 cm Universi ty of [place] [facility] Body weight 2020-06-05 19:43:00 95.255 kg Universi ty [facility] [place] [facility] BMI 2020-06-05 19:43:00 33.89 kg/m2 [facility]i ty [facility] [place] [facility] Systolic blood 2020-06-05 19:43:00 117 mm[Hg] Univer sity of pressure [place] [facility] Diastolic blood 2020-06-05 19:43:00 79 mm[Hg] Unive rsity of pressure [facility] [place] [facility] Heart rate 2020-06-05 19:43:00 82 /min Universi ty of [facility] [place] [facility] Body temperature 2020-06-05 19:43:00 36.94 Buffy Univ ersity of [facility] [place] [facility] Respiratory rate 2020-06-05 19:43:00 98 /min Univ ersity of [facility] [place] [facility] Body height 2020-06-05 19:43:00 167.6 cm Universi ty of [facility] [place] [facility] Body weight 2020-06-05 19:43:00 95.255 kg Universi ty of [place] [facility] BMI 2020-06-05 19:43:00 33.89 kg/m2 Universi ty of [facility] [place] [facility] Procedures Procedure Date / Time Performed Performing Clinician [facility] e NOTICE OF PRIVACY 2021-07-24 13:17:53 Doctor Unassigned, No [facility] [place] PR[facility] Name Medical Branch CONSENT/REFUSAL FOR 2021-07-24 13:11:03 Doctor Unassigned, No Un i[facility]ity of [place] DIAGNOSIS AND Name Medical Branch TREATMENT COMP. METABOLIC PANEL 2020-07-24 19:13:[address] [facility] ([id number]) [facility] CBC WITH DIFF 2020-07-24 19:13:00 [facility] URINALYSIS 2020-07-24 19:13:00 Singer [facility] POCT TEST 2020-07-24 19:12:00 Vernon Bermani ty of [facility] NOTICE OF PRIVACY 2020-07-24 18:24:44 Doctor Unassigned, No Univ ersity [facility] PRACTICES Name Medical Branch CONSENT/REFUSAL FOR 2020-07-24 18:24:30 Doctor Unassigned, No Un [facility] [place] DIAGNOSIS AND Name Medical Branch TREATMENT Encounters Start End Encounter Admission Attending Care Care Encounter Source Date/Time Date/Time Type Type Clinicians Facility Department ID 2021-09-24 Emergency [facility] [id number] Univers 19:14:49 ity of [facility] 2021-09-21 Emergency [facility] [id number] Univers 15:01:14 ity of [facility] 2021-07-24 2021-07-24 [facility] [id number] Univers 08:34:00 08:45:00 Mayela Leary [id number] ity of [place] 4.2.7.2.686 [facility] [phone] [address] 2020-07-24 2020-07-24 Emergency [facility] [id number] 13:33:00 15:32:00 Vernon Leary [id number] [place] [address] [place] [address] [id number] [facility] 2020-07-24 2020-07-24 Emergency [facility] [id number] Univers 13:33:00 15:32:00 Vernon Leary [id number] i ty of [place] 4.[address] [place] [phone] 2020-06-07 2020-06-07 Telephone Pob1, Acute [place] [id number] 00:00:00 00:00:00 [facility] [id number] [place] [id number] Professio [phone] [place] [address] [address] One 2020-06-07 2020-06-07 Telephone [facility] [id number] 00:00:00 00:00:00 [facility] [id number] [place] [id number] Professio [phone] [place] [address] [address] 2020-06-07 2020-06-07 Telephone Pob1, Acute [facility] 1.2.840.114 [id number] Univers 00:00:00 00:00:00 [facility] [id number] ity of [place] [id number] Blake as Professio [phone] [address] Office Building One 2020-06-07 2020-06-07 Telephone [facility], [facility] [id number] [facility] 00:00:00 00:00:00 [facility] [id number] it y of [place] [id number] Blake as Professio [phone] [address] Office Building One 2020-06-06 2020-06-06 Outpatient R SOFIE, [facility] [id number] Univers 08:00:00 08:00:00 KIRTI ity of [facility] 2020-06-05 2020-06-05 Outpatient R [facility] [id number] Univers 15:00:00 15:00:00 ity of [facility] 2020-06-05 2020-06-05 Urgent Pob1, Acute [facility] [id number] 14:40:00 15:00:00 [facility] Health [id number] [place] [id number] Professio [phone] [place] [address] [address] One 2020-06-05 2020-06-05 Urgent Pob1, Acute Care [facility] 1. 2.840.114 [id number] [facility] 14:40:00 15:00:00 Kirti Floyd [id number] ity of [place] [id number] Blake as Professio [phone] Ga dical nal 044 [facility] One 2020-06-05 2020-06-05 QUANG Hong 1.2.840.114 [id number] 00:00:00 00:00:00 (Out) Kirti Faria [id number] [place] [id number] Professio [phone] [address] One 2020-06-05 2020-06-05 Adore Garrido NDWALLY [id number] Univers 00:00:00 00:00:00 (Out) Kirti Faria [id number] it y of [place] [id number] [place] as Professio [phone] [address] One Results Test Description Test Time Test Comments Results Result Comments Source COMP. METABOLIC PANEL (45739) 2020-07-24 20:08:00 Test Item Value Reference Range Interpretation Comme nts NA (test code = 1042353415) 135 mmol/L 135-145 K (test code = 9590698901) 4.6 mmol/L 3.5-5 CL (test code = 9946517773) 101 mmol/L 98-108 CO2 TOTAL (test code = 9144728920) 24 mmol/L 23-31 AGAP (test code = 9926707842) 2-16 BUN (test code = 1388595802) 12 mg/dL 7-23 GLUCOSE (test code = 1886668382) 94 mg/dL 70-110 CREATININE (test code = 0.63 mg/dL 0.5-1.04 1290702623) TOTAL BILI (test code = 1.5 mg/dL 0.1-1.1 H 2814150653) CALCIUM (test code = 9001529593) 9.4 mg/dL 8.6-10.6 T PROTEIN (test code = 9833642061) 8.1 g/dL 6.3-8.2 ALBUMIN (test code = 3750886364) 4.6 g/dL 3.5-5 ALK PHOS (test code = 8421887305) 47 U/L 34-122 ALTv (test code = 1742-6) 12 U/L 5-35 AST(SGOT) (test code = 5582242497) 25 U/L 13-40 eGFR Calculation (Non- mL/min/1.73m2 O[place]i) (test code = 4239929083) eGFR Calculation ( mL/min/1.73m2 [place]) (test code = 4009620735) JACOB (test code = JACOB) Association of Glomerular Filtration Rate (GFR) and Staging of Kidney Disease* + +-------- + ------+| GFR (mL/min/1.73 m2) ?| With Kidney Damage ?| ?Without Kidney Damage+ +-- + +| ?>90 ?| ?Stage one ?| ? Normal ?+ +------- + -------+| ?60-89 ?| ?Stage two ?| ? Decreased GFR ? + +-------- + ------+| ?30-59 ?| ?Stage three ?| ? Stage three ? + +-------- + ------+| ?15-29 ?| ?Stage four ? | ? Stage four ?+ +------- + -------+| ?<15 (or dialysis) ? ?| ?Stage five ? | ? Stage five ?+ +------- + -------+ *Each stage assumes the associated GFR level has been in effect for at least three months. ?Stages 1 to 5, with or without kidney disease, indicate chronic kidney disease. Notes: Determination of stages one and two (with eGFR >59mL/min/1.73 m2) requires estimation of kidney damage for at least three months as defined by structural or functional abnormalities of the kidney, manifested by either:Pathological abnormalities or Markers of kidney damage (including abnormalities in the composition of the blood or urine or abnormalities in imaging tests). Lab Interpretation (test code = Abnormal 21221-8) [facility] [id number] 19:29:00 Test Item Value Reference Range Interpretation Comments APPEARANCE (test code = Hazy Clear A 0545335626) COLOR (test code = Kia Yellow A 2375084094) PH (test code = 4.8-8.0 3339647750) SP GRAVITY (test code = 1.003-1.030 8525748442) GLU U QUAL (test code = Normal Normal 5878151872) BLOOD (test code = Negative Negative 0392176824) KETONES (test code = 20 mg/dL Negative A 7156074688) PROTEIN (test code = 30 mg/dL Negative A 2887-8) UROBILIN (test code = 2.0 mg/dL Normal A 5548069368) BILIRUBIN (test code = Negative Negative 3290400779) NITRITE (test code = Negative Negative 5796821046) LEUK CEASAR (test code = 500/uL Negative A 9241757260) RBC/HPF (test code = See_Comment H [Autom ated message] 0157451045) The system [employer] generated this result transmit sangita reference range : 0 - 3 HPF. The refe rence range was not u sed to interpret th is result as normal/abnormal . WBC/HPF (test code = See_Comment H [Autom ated message] 0999136038) The system [employer] generated this result transmit sangita reference range : 0 - 5 HPF. The refe rence range was not u sed to interpret th is result as normal/abnormal . BACTERIA (test code = Moderate Negative A 7815340548) MUCOUS (test code = Marked Negative LPF A 3507563672) SQ EPITH (test code = HPF 3798528756) Lab Interpretation (test Abnormal code = 98341-3) [facility] WITH [id number] 19:24:00 Test Item Value Reference Range Interpretation Comments WBC (test code = See_Comment [Automated 9390-2) message] The sy stem which generated this result transmitted reference range : 4.30 - 11.10 10*3/?L. The reference range was not used to interpret this result as normal/abnormal . RBC (test code = See_Comment [Automated 789-8) message] The sy stem which generated this result transmitted reference range : 3.93 - 5.25 10*6/?L. The reference range was not used to interpret this result as normal/abnormal . HGB (test code = 13.3 g/dL 11.6-15 718-7) HCT (test code = 40.2 % 35.7-45.2 4544-3) MCV (test code = 86.1 fL 80.6-95.5 787-2) MCH (test code = 28.5 pg 25.9-32.8 785-6) MCHC (test code = 33.1 g/dL 31.6-35.1 786-4) RDW-SD (test code = 39.8 fL 39-49.9 03825-8) RDW-CV (test code = 12.8 % 12-15.5 788-0) PLT (test code = See_Comment H [Automated 777-3) message] The sy stem which generated this result transmitted reference range : 166 - 358 10*3/ ?L. The reference r nat was not used to interpret this result as normal/abnormal . MPV (test code = 10.2 fL 9.5-12.9 06856-8) NRBC/100 WBC (test See_Comment [Automat ed code = 1600180995) message] The system which generated this result transmitted reference range : 0.0 - 10.0 /100 WBCs. The refer ence range was not u sed to interpret th is result as normal/abnormal . NRBC x10^3 (test code <0.01 See_Comment [Auto mated = 2550831480) message] The s ystem which generated this result transmitted reference range : 10*3/?L. The reference range was not used to interpret this result as normal/abnormal . GRAN MAT (NEUT) % 70.5 % (test code = 770-8) IMM GRAN % (test code 0.30 % = 2742497219) LYMPH % (test code = 21.5 % 736-9) MONO % (test code = 6.6 % 5905-5) EOS % (test code = 0.4 % 713-8) BASO % (test code = 0.7 % 706-2) GRAN MAT x10^3(ANC) 7.20 10*3/uL 1.88-7.09 H (test code = 4297132437) IMM GRAN x10^3 (test 0.03 10*3/uL 0-0.06 code = 5708558177) LYMPH x10^3 (test code 2.20 10*3/uL 1.32-3.29 = 731-0) MONO x10^3 (test code 0.67 10*3/uL 0.33-0.92 = 742-7) EOS x10^3 (test code = 0.04 10*3/uL 0.03-0.39 711-2) BASO x10^3 (test code 0.07 10*3/uL 0.01-0.07 = 704-7) Lab Interpretation Abnormal (test code = 58784-3) [facility] [id number] 19:12:00 Test Item Value Reference Range Interpretation Comments POCT PREG (test code = 1605) negative On board controls acceptable with present C Line (test code = 3574) POCT PREG LOT # (test code = 3575) [id number] POCT PREG TEST DATE (test 06/23/2021 code = 3576) Lab Interpretation (test code = Normal 16356-9) [facility]"
--- NOTE | 2021-11-06 07:44 | RAD REPORT ---
EXAM DESCRIPTION: CT - Head Brain Wo Cont - 11/06/2021 7:40 am CLINICAL HISTORY: headache, head injury COMPARISON: HEAD BRAIN W O CONTRAST dated 09/10/2011 TECHNIQUE: Axial 5 mm thick images of the head were obtained without IV contrast. All CT scans are performed using dose optimization technique as appropriate and may include automated exposure control or mA/KV adjustment according to patient size. FINDINGS: No intracranial hemorrhage, mass, edema or shift of mid-line structures. No acute infarcti on changes seen. No abnormal extra-axial fluid collections. Ventricles are normal. Mastoid air cells and visualized portions of the paranasal sinuses are clear. No acute bony findings. No identifiable changes from comparison. IMPRESSION: Negative non-contrast CT head examination.
[2021-11-06] MEDS ORDERED: KETOROLAC 30 MG/ML INJ ONE (07:55)
[2021-11-06] MEDS ORDERED: ONDANSETRON 4 MG/2 ML VIAL ONE (07:55)
[2021-11-06] MEDS ORDERED: NA CHLORIDE 0.9% 1,000 ML ONE (07:56)
--- NOTE | 2021-11-06 08:44 | ER ---
Nurse's Notes [facility] Name: Edith Troy Age: 31 yrs Sex: Female : 1990 Arrival Date: 11/06/2021 Time: 06:56 Bed 4 Private MD: Diagnosis: Headache Presentation: 11/06 07:08 Chief complaint: Patient states: liu x 4-5 days, worse yesterday with otc meds not [facility] helping. fell last and hit the l side of head. no blurred vision or n/n associated. Coronavirus screen: At this time, unable to obtain information related to travel outside the [place] At this time, the client does not indicate any symptoms associated with coronavirus-19. Ebola Screen: No symptoms or risks identified at this time. Initial Sepsis Screen: Does the patient meet any 2 criteria? No. Patient's initial sepsis screen is negative. Does the patient have a suspected source of infection? No. Patient's initial sepsis screen is negative. Risk Assessment: Do you want to hurt yourself or someone else? Patient reports no desire to harm self or others. Onset of symptoms was November 01, 2021. 07:08 Method Of Arrival: Ambulatory [facility] 07:08 Acuity: TEJ 4 [facility] Triage Assessment: 07:13 Headache History: The patient has had previous headaches and this one is similar to [facility] previous episodes. General: Appears in no apparent distress. Behavior is calm, cooperative. Pain: Complains of pain in forehead, left protestant, left ear and left base of the skull. Neuro: No deficits noted. 07:23 Pain: Complains of pain in forehead, left eye, left protestant, left ear and left base of jh6 the skull Pain currently is 7 out of 10 on a pain scale. Pain began 11/01/21 Aggravated by light Noted to be quiet/stoic, Also complains of inability to concentrate. Neuro: No deficits noted. Oriented to person, place, time, situation, Food Tester are equal bilaterally Moves all extremities. Gait is steady, Speech is normal, Facial symmetry appears normal, Pupils are PERRLA, Intact. 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 - Social history:: Smoking status: Patient denies any tobacco usage or history of. - Family history:: not pertinent. - Hospitalizations: : No recent hospitalization is reported. Screenin:22 Abuse screen: Denies threats or abuse. Nutritional screening: No deficits noted. [facility] Tuberculosis screening: No symptoms or risk factors identified. Fall Risk None identified. Assessment: 08:00 General: Appears in no apparent distress. comfortable, Behavior is calm, cooperative. iw Pain: Complains of pain in left base of the skull and left ear and left protestant and forehead. Neuro: Level of Consciousness is awake, alert, obeys commands, Oriented to person, place, time, situation, Moves all extremities. Full function Reports headache in left parietal area. Cardiovascular: Patient's skin is warm and dry. Respiratory: Respiratory effort is even, unlabored, Respiratory pattern is regular, symmetrical. Derm: Skin is intact, is healthy with good turgor. Musculoskeletal: Range of motion: intact in all extremities. 09:00 Reassessment: Patient appears in no apparent distress at this time. Patient states jl7 symptoms have improved. Vital Signs: 07:08 BP 133 / 82; Pulse 79; Resp 17; Temp 97.8(O); Pulse Ox 100% ; Weight 99.79 kg; Height 5 6 ft. 7 in. (170.18 cm); Pain 7/10; 09:00 BP 122 / 69; Pulse 80; Resp 15; Pulse Ox 100% ; jl7 07:08 Body Mass Index 34.46 (99.79 kg, 170.18 cm) [facility] [place] Coma Score: 08:42 Eye Response: spontaneous(4). Verbal Response: oriented(5). Motor Response: obeys rn commands(6). Total: 15. ED Course: 06:56 Patient arrived in ED. wm 07:08 Jose Peralta PA is PHCP. jmm 07:08 Amilcar Rodriguez MD is Attending Physician. jmm 07:12 Triage completed. jh6 07:20 Attending Physician role handed off by Amilcar Rodriguez MD rn 07:20 Fuad Fuentes MD is Attending Physician. rn 07:22 Arm band placed on right wrist. jh6 07:24 Bed in low position. Call light in reach. Side rails up X 1. jh6 07:25 Noise minimized. Lights dimmed. jh6 07:26 Tarah Chi, RN is Primary Nurse. iw 07:39 CT Head Brain wo Cont In Process Unspecified. EDMS 07:45 Inserted saline lock: 20 gauge in right antecubital area, using aseptic technique. ds4 08:30 No provider procedures requiring assistance completed. iw 09:00 IV discontinued, intact, bleeding controlled, No redness/swelling at site. Pressure jl7 dressing applied. Administered Medications: 08:00 Drug: NS 0.9% 1000 ml Route: IV; Rate: 1000 ml; Site: right antecubital; iw 09:00 Follow up: Response: No adverse reaction; IV Status: Completed infusion; IV Intake: jl7 850ml 08:00 Drug: Zofran (Ondansetron) 4 mg Route: IVP; Site: right antecubital; iw 09:01 Follow up: Response: No adverse reaction; Nausea is decreased jl7 08:01 Drug: Ketorolac 30 mg Route: IVP; Site: right antecubital; iw 09:01 Follow up: Response: No adverse reaction; Pain is decreased jl7 Intake: 09:00 IV: 850ml; Total: 850ml. jl7 Outcome: 08:43 Discharge ordered by . rn 09:00 Discharged to home ambulatory. jl7 09:00 Condition: stable 09:00 Discharge instructions given to patient, Instructed on discharge instructions, follow up and referral plans. Demonstrated understanding of instructions, follow-up care. 09:02 Patient left the ED. jl7 Signatures: Dispatcher [employer] EDSC Jose Peralta PA PA Tarah Moreno, RN RN iw Fuad Fuentes MD MD rn Swanson, Donovan ds4 Vicky Venegas RN RN jl7 Kathie Paige Jennifer RN RN 6 Corrections: (The following items were deleted from the chart) 07:13 07:12 PMHx: Asthma; 6 [facility]
--- NOTE | 2021-11-06 08:44 | EDPHYS ---
Physician Documentation [facility] Name: Edith Troy Age: 31 yrs Sex: Female : 1990 Arrival Date: 11/06/2021 Time: 06:56 Bed 4 Private MD: ED Physician Fuad Fuentes HPI: 11/06 07:26 This 31 yrs old Female presents to ER via Ambulatory with complaints of rn Headache > 24hrs Old. 07:26 The patient complains of pain to the forehead. The patient describes the headache as rn aching. 07:27 Onset: The symptoms/episode began/occurred 4 day(s) ago. Associated signs and symptoms: rn Pertinent negatives: fever, neck stiffness, rash, vision changes, vision loss, weakness, vertigo. Severity of symptoms: At its worst the pain was moderate, in the emergency department the pain is unchanged. Headache History: The patient has had previous headaches and this one is similar to previous episodes. The symptoms are alleviated by over the counter pain medication, the symptoms are aggravated by nothing. The patient has experienced similar episodes in the past. The patient has not recently seen a physician. Pt reports fall on bleachers this past week, hit head, no LOC, no neck injury or pain, remembers all events, doesn't take blood thinners. Reports hx of migraines but usually doesn't spill over to next day like today. No focal neuro complaints or vision changes. . 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 - Social history:: Smoking status: Patient denies any tobacco usage or history of. - Family history:: not pertinent. - Hospitalizations: : No recent hospitalization is reported. ROS: 07:29 Constitutional: Negative for fever, chills, and weight loss, Eyes: Negative for injury, rn pain, redness, and discharge, Neck: Negative for injury, pain, and swelling, Cardiovascular: Negative for chest pain, palpitations, and edema, Respiratory: Negative for shortness of breath, cough, wheezing, and pleuritic chest pain, Abdomen/GI: Negative for abdominal pain, vomiting, diarrhea, and constipation, Back: Negative for injury and pain, MS/Extremity: Negative for injury and deformity, Skin: Negative for injury, rash, and discoloration, Neuro: Negative for weakness, numbness, tingling, and seizure. Exam: 07:29 Constitutional: This is a well developed, well nourished patient who is awake, alert, rn and in no acute distress. Head/Face: Normocephalic, atraumatic. Eyes: Periorbital areas with no swelling, redness, or edema. Cardiovascular: Regular rate and rhythm. No pulse deficits. Respiratory: No increased work of breathing, no retractions or nasal flaring. Abdomen/GI: Soft, non-tender Skin: Warm, dry MS/ Extremity: Pulses equal, no cyanosis. Neuro: Awake and alert, GCS 15 Vital Signs: 07:08 BP 133 / 82; Pulse 79; Resp 17; Temp 97.8(O); Pulse Ox 100% ; Weight 99.79 kg; Height 5 jh6 ft. 7 in. (170.18 cm); Pain 7/10; 09:00 BP 122 / 69; Pulse 80; Resp 15; Pulse Ox 100% ; jl7 07:08 Body Mass Index 34.46 (99.79 kg, 170.18 cm) jh6 [place] Coma Score: 08:42 Eye Response: spontaneous(4). Verbal Response: oriented(5). Motor Response: obeys rn commands(6). Total: 15. MDM: 07:20 Patient medically screened. rn 08:42 Differential diagnosis: migraine, subdural hematoma, tension headache, traumatic rn injuries. Data reviewed: vital signs, nurses notes, radiologic studies, CT scan, and as a result, I will discharge patient. Counseling: I had a detailed discussion with the patient and/or guardian regarding: the historical points, exam findings, and any diagnostic results supporting the discharge/admit diagnosis, radiology results, the need for outpatient follow up, to return to the emergency department if symptoms worsen or persist or if there are any questions or concerns that arise at home. Response to treatment: the patient's symptoms have mildly improved after treatment, and as a result, I will discharge patient. Special discussion: I discussed with the patient/guardian in detail that at this point there is no indication for admission to the hospital. It is understood, however, that if the symptoms persist or worsen the patient needs to return immediately for re-evaluation. 11/06 07:26 Order name: CT Head Brain wo Cont; Complete Time: 07:52 rn 11/06 07:29 Order name: IV Start; Complete Time: 08:01 rn Administered Medications: 08:00 Drug: NS 0.9% 1000 ml Route: IV; Rate: 1000 ml; Site: right antecubital; iw 09:00 Follow up: Response: No adverse reaction; IV Status: Completed infusion; IV Intake: jl7 850ml 08:00 Drug: Zofran (Ondansetron) 4 mg Route: IVP; Site: right antecubital; iw 09:01 Follow up: Response: No adverse reaction; Nausea is decreased jl7 08:01 Drug: Ketorolac 30 mg Route: IVP; Site: right antecubital; iw 09:01 Follow up: Response: No adverse reaction; Pain is decreased jl7 Disposition Summary: 11/06/21 08:43 Discharge Ordered Location: Home rn Problem: new rn Symptoms: have improved rn Condition: Stable rn Diagnosis - Headache rn Followup: rn - With: Private Physician - When: As needed - Reason: Recheck today's complaints, Re-evaluation by your physician Discharge Instructions: - Discharge Summary Sheet rn - Migraine Headache rn Forms: - Medication Reconciliation Form rn - Thank You Letter rn - 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
[2021-11-06 09:11] VITALS: TEMP 97.8; O2SAT 100
[2021-11-06 09:12] VITALS: BP 122/69
== END 2021-11-06 09:02 | disposition home or self-care (01) ==
LOC: ER 06:51
DX: R51.9 Headache, unspecified (principal)
CPT/HCPCS: 70450; 96361; 96374; 96375; 99283; J2405; J7030

== ENCOUNTER 2024-08-10 13:43 | Emergency (ER) | payer SELFPAY ==
--- OUTSIDE RECORDS SUMMARY | 2024-08-10 13:47 | XMS REPORT | Continuity of Care Document ---
Author Name Unknown Address [address] [place] [address] [facility] thconnect Address [address] [place] [address] Care Team Providers Care Supervisor Shipping Room Name Role Phone Pcp, Patient Does Not Have A Primary Care Physic maryann Mayela Chi DO Attending Clinician [phone] Vernon Berman DO Attending Clinician [phone] Po, Acute Care Clinic Attending Clinician Unav ailable Frederick Dorman Attending Clinician [phone] Doctor Unassigned, [place] Attending Clinician U navailable KIRTI CARRIZALES Attending Clinician Unavailable Kirti Martin Attending Clinician [phone] Payers Payer Name Policy Type Policy Number Effective Date Expirati on Date Source Problems Condition Name Condition Details Condition Category Status Onset Date Resolution Date Last Treatment Date Treating Clinician Comments Source Other abnormal Papanicola ou smear of cervix 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 Patient reports in 2010 she was told that she needed to follow up her pap every 6 months due to abnormal cells. She states she thought it was at this clinic but there is no record of an abnormal pap here. [facility] General counseling for initiation of other contracept kojo measures General counseling for initiation of other contracept kojo measures Disease Active 03-17 00:00: 00 [facility] Allergies, Adverse Reactions, Alerts Allergy Name Allergy Type Status Severity Reaction(s) Onset Date Inactive Date Treating Clinician Comments Source NO KNOWN ALLERGIE S Drug Class Active [facility] Social History Social Habit Start Date Stop Date Quantity Comments Source [facility] to SARS-CoV-2 (event) 2021-06-24 00:00:00 2021-07-24 08:29:00 Not sure [facility] History of Social function 2021-07-24 00:00:00 2021-07-24 00:00:00 [facility] Alcohol intake 2020-06-05 00:00:00 2020-06-05 00:00:00 Current non-drinker of alcohol (finding) [facility] Tobacco use and exposure 2014-03-17 00:00:00 2014-03-17 00:00:00 Smokeless tobacco non-user [facility] Sex Assigned At 1990 00:00:00 1990 00:00:00 [facility] Smoking Status Start Date Stop Date Source Never smoked tobacco [facility] Medications Ordered Medication Name Filled Medication Name Start Date Stop Date Current Medication? Ordering Clinician Indication Dosage Frequency Signature (SIG) Comments Components Source NaCl 0.9% (NS) bolus infusion 1,000 mL 07-24 20:15: 00 07-24 20:25 :00 No 1000mL at 999 mL/hr, 1,000 mL, IV Infusion, ONCE, 1 dose, 07/24/20 at 1515, STAT [facility] ondansetron 4 mg disintegrat ing tablet 07-24 00:00: 00 Yes [id number] 4mg Take 1 tablet by mouth every 8 (eight) hours as needed for Nausea and Vomiting (N/V). [facility] cephALEXin (KEFLEX) 500 mg capsule 07-24 00:00: 00 08-01 04:59 :00 No [id number] 500mg Take 1 capsule by mouth 3 (three) times daily for 7 days. [facility] methylPREDN ISolone (MEDROL, KEHINDE,) 4 mg tablets 04-14 00:00: 00 Yes Take by mouth SEE-INSTRU CTIONS. follow package directions [facility] naproxen (NAPROSYN) 500 mg tablet 04-14 00:00: 00 Yes 500mg Take 1 tablet by mouth 2 (two) times daily with meals. [facility] Immunizations Ordered Immunization Name Filled Immunization Name Date Status Comments Source Rubella 2010-08-06 00:00:00 Completed [facility] Rubella 2010-08-06 00:00:00 Completed [facility] Rubella 2010-08-06 00:00:00 Completed [facility] Rubella 2010-08-06 00:00:00 Completed [facility] Rubella 2010-08-06 00:00:00 Completed [facility] Rubella 2010-08-06 00:00:00 Completed [facility] Rubella 2010-08-06 00:00:00 Completed [facility] Td 2004-11-24 00:00:00 Completed [facility] Td 2004-11-24 00:00:00 Completed [facility] Td 2004-11-24 00:00:00 Completed [facility] Td 2004-11-24 00:00:00 Completed [facility] Td 2004-11-24 00:00:00 Completed [facility] Td 2004-11-24 00:00:00 Completed [facility] Td 2004-11-24 00:00:00 Completed [facility] Rubella Unknown Completed [facility] TD, NOS Unknown Completed [facility] Vital Signs Vital Name Observation Time Observation Value Comments S ource Systolic blood pressure 2021-07-24 13:30:00 129 mm[Hg] [facility] Diastolic blood pressure 2021-07-24 13:30:00 94 mm[Hg] [facility] Heart rate 2021-07-24 13:30:00 80 /min Jamee [facility] Body temperature 2021-07-24 13:30:00 36.44 Buffy [facility] Respiratory rate 2021-07-24 13:30:00 18 /min [facility] Oxygen saturation in Arterial blood by Pulse oximetry 2021-07-24 13:30:00 99 /min [facility] Systolic blood pressure 2020-07-24 19:30:00 104 mm[Hg] [facility] Diastolic blood pressure 2020-07-24 19:30:00 79 mm[Hg] [facility] Heart rate 2020-07-24 19:30:00 93 /min Unive [facility] Respiratory rate 2020-07-24 19:30:00 18 /min [facility] Oxygen saturation in Arterial blood by Pulse oximetry 2020-07-24 19:30:00 98 /min [facility] Body temperature 2020-07-24 18:31:00 37.22 Buffy [facility] Body height 2020-07-24 18:31:00 167.6 cm [facility] Body weight 2020-07-24 18:31:00 97.523 kg [facility] BMI 2020-07-24 18:31:00 34.70 kg/m2 [facility] Systolic blood pressure 2020-07-24 19:30:00 104 mm[Hg] [facility] Diastolic blood pressure 2020-07-24 19:30:00 79 mm[Hg] [facility] Heart rate 2020-07-24 19:30:00 93 /min Unive [facility] Respiratory rate 2020-07-24 19:30:00 18 /min [facility] Oxygen saturation in Arterial blood by Pulse oximetry 2020-07-24 19:30:00 98 /min [facility] Body temperature 2020-07-24 18:31:00 37.22 Buffy [facility] Body height 2020-07-24 18:31:00 167.6 cm [facility] Body weight 2020-07-24 18:31:00 97.523 kg [facility] BMI 2020-07-24 18:31:00 34.70 kg/m2 [facility] Systolic blood pressure 2020-06-05 19:43:00 117 mm[Hg] [facility] Diastolic blood pressure 2020-06-05 19:43:00 79 mm[Hg] [facility] Heart rate 2020-06-05 19:43:00 82 /min Unive [facility] Body temperature 2020-06-05 19:43:00 36.94 Buffy [facility] Respiratory rate 2020-06-05 19:43:00 98 /min [facility] Body height 2020-06-05 19:43:00 167.6 cm [facility] Body weight 2020-06-05 19:43:00 95.255 kg [facility] BMI 2020-06-05 19:43:00 33.89 kg/m2 [facility] Systolic blood pressure 2020-06-05 19:43:00 117 mm[Hg] [facility] Diastolic blood pressure 2020-06-05 19:43:00 79 mm[Hg] [facility] Heart rate 2020-06-05 19:43:00 82 /min Unive [facility] Body temperature 2020-06-05 19:43:00 36.94 Buffy [facility] Respiratory rate 2020-06-05 19:43:00 98 /min [facility] Body height 2020-06-05 19:43:00 167.6 cm [facility] Body weight 2020-06-05 19:43:00 95.255 kg [facility] BMI 2020-06-05 19:43:00 33.89 kg/m2 [facility] Procedures Procedure Date / Time Performed Performing Clinicia n Source NOTICE OF PRIVACY PRACTICES 2021-07-24 13:17:53 Doctor Unassigned, [place] [facility] CONSENT/REFUSAL FOR DIAGNOSIS AND TREATMENT 2021-07-24 13:11:03 Doctor Unassigned, [place] [facility] COMP. METABOLIC PANEL (22625) 2020-07-24 19:13:00 Vernon Berman [facility] CBC WITH DIFF 2020-07-24 19:13:00 Vernon Berman [facility] URINALYSIS 2020-07-24 19:13:00 Vernon Berman [facility] POCT TEST 2020-07-24 19:12:00 Stacy Berman [facility] NOTICE OF PRIVACY PRACTICES 2020-07-24 18:24:44 Doctor Unassigned, [place] [facility] CONSENT/REFUSAL FOR DIAGNOSIS AND TREATMENT 2020-07-24 18:24:30 Doctor Unassigned, [place] [facility] Encounters Start Date/Time End Date/Time Encounter Type Admission Type Attending [facility] Facility Care Department Encounter ID Source 2021-09-24 19:14:49 Emergency [facility] [id number] [facility] 2021-09-21 15:01:14 Emergency [facility] [id number] [facility] 2021-07-24 08:34:00 2021-07-24 08:45:00 Emergency Mayela Chi [facility] [id number] 350.1.13.10 4.2.7.2.686 [id number] [facility] 2020-07-24 13:33:00 2020-07-24 15:32:00 Emergency Singer Vernon [facility] [id number] 350.1.13.10 4.2.7.2.686 [id number] 2020-07-24 13:33:00 2020-07-24 15:32:00 Emergency Singer [facility] [id number] 350.1.13.10 4.2.7.2.686 [id number] [facility] 2020-06-07 00:00:00 2020-06-07 00:00:00 Telephone Sarah, Acute Care Clinic [facility] [id number] 350.1.13.10 4.2.7.2.686 [id number] 2020-06-07 00:00:00 2020-06-07 00:00:00 Telephone Frederick Suarez [facility] 1.2.840.114 350.1.13.10 4.2.7.2.686 [id number] 2020-06-07 00:00:00 2020-06-07 00:00:00 Patient Secure Msg Doctor Unassigned, [place] [facility] 1..114 350.1.13.10 4.2.7.2.686 [id number] [facility] 2020-06-07 00:00:00 2020-06-07 00:00:00 Telephone Po, Acute Care Clinic [facility] 1.114 350.1.13.10 4.2.7.2.686 [id number] [facility] 2020-06-07 00:00:00 2020-06-07 00:00:00 Telephone Frederick Suarez [facility] 1.114 350.1.13.10 4.2.7.2.686 [id number] [facility] 2020-06-06 08:00:00 2020-06-06 08:00:00 Outpatient R KIRTI CARRIZALES [facility] [id number] [facility] 2020-06-05 15:00:00 2020-06-05 15:00:00 Outpatient R [facility] [id number] [facility] 2020-06-05 14:40:00 2020-06-05 15:00:00 Urgent Care Pob1, Acute Care Clinic [facility] 1.114 350.1.13.10 4.2.7.2.686 [id number] 2020-06-05 14:40:00 2020-06-05 15:00:00 Urgent Care Pob1, Acute Care Clinic Zoey Carrizalesthia [facility] 1.114 350.1.13.10 4.2.7.2.686 [id number] [facility] 2020-06-05 00:00:00 2020-06-05 00:00:00 Letter (Out) Kirti Carrizales [facility] 1.2.840.114 350.1.13.10 4.2.7.2.686 [id number] 2020-06-05 00:00:00 2020-06-05 00:00:00 Letter (Out) Kirti Carrizales [facility] 1.2.840.114 350.1.13.10 4.2.7.2.686 [id number] [facility] Results Test Description Test Time Test Comments Results Result Co mments Source [facility]* Test Item Value Reference Range Interpretation Comme nts APPEARANCE (test code = 6667478536) Hazy Clear A COLOR (test code = 4848104230) Kia Yellow A PH (test code = 9285340733) 4.8-8.0 SP GRAVITY (test code = 0895177371) 1.003-1.030 GLU U QUAL (test code = 7149647408) Normal Normal BLOOD (test code = 7782450824) Negative Negative KETONES (test code = 3157268157) 20 mg/dL Negative A PROTEIN (test code = 2887-8) 30 mg/dL Negative A UROBILIN (test code = 5153225466) 2.0 mg/dL Normal A BILIRUBIN (test code = 1823456145) Negative Negative NITRITE (test code = 8390765309) Negative Negative LEUK CEASAR (test code = 9822969579) 500/uL Negative A RBC/HPF (test code = 9294556885) See_Comment H [Automated ICEXa ge] The system which generated this result transmitted reference range: 0 - 3 HPF. The reference range was not used to interpret this result as normal/abnormal. WBC/HPF (test code = 0813767251) See_Comment H [Automated messa ge] The system which generated this result transmitted reference range: 0 - 5 HPF. The reference range was not used to interpret this result as normal/abnormal. BACTERIA (test code = 4634906133) Moderate Negative A MUCOUS (test code = 5645907477) Marked Negative LPF A SQ EPITH (test code = 7649946442) HPF Lab Interpretation (test code = 95208-0) Abnormal [facility] WITH [id number] 19:24:00* Test Item Value Reference Range Interpretation Comme nts WBC (test code = 6690-2) See_Comment [Automated messa ge] The system which generated this result transmitted reference range: 4.30 - 11.10 10*3/?L. The reference range was not used to interpret this result as normal/abnormal. RBC (test code = 789-8) See_Comment [Automated messa ge] The system which generated this result transmitted reference range: 3.93 - 5.25 10*6/?L. The reference range was not used to interpret this result as normal/abnormal. HGB (test code = 718-7) 13.3 g/dL 11.6-15 HCT (test code = 4544-3) 40.2 % 35.7-45.2 MCV (test code = 787-2) 86.1 fL 80.6-95.5 MCH (test code = 785-6) 28.5 pg 25.9-32.8 MCHC (test code = 786-4) 33.1 g/dL 31.6-35.1 RDW-SD (test code = 44907-3) 39.8 fL 39-49.9 RDW-CV (test code = 788-0) 12.8 % 12-15.5 PLT (test code = 777-3) See_Comment H [Automated messa ge] The system which generated this result transmitted reference range: 166 - 358 10*3/?L. The reference range was not used to interpret this result as normal/abnormal. MPV (test code = 72028-3) 10.2 fL 9.5-12.9 NRBC/100 WBC (test code = 7216626033) See_Comment [Automated RABBL ssage] The system which generated this result transmitted reference range: 0.0 - 10.0 /100 WBCs. The reference range was not used to interpret this result as normal/abnormal. NRBC x10^3 (test code = 6963237070) <0.01 See_Comment [Automated messa ge] The system which generated this result transmitted reference range: 10*3/?L. The reference range was not used to interpret this result as normal/abnormal. GRAN MAT (NEUT) % (test code = 770-8) 70.5 % IMM GRAN % (test code = 1863707314) 0.30 % LYMPH % (test code = 736-9) 21.5 % MONO % (test code = 5905-5) 6.6 % EOS % (test code = 713-8) 0.4 % BASO % (test code = 706-2) 0.7 % GRAN MAT x10^3(ANC) (test code = 5800467232) 7.20 10*3/uL 1.88-7.09 H IMM GRAN x10^3 (test code = 0493755211) 0.03 10*3/uL 0-0.06 LYMPH x10^3 (test code = 731-0) 2.20 10*3/uL 1.32-3.29 MONO x10^3 (test code = 742-7) 0.67 10*3/uL 0.33-0.92 EOS x10^3 (test code = 711-2) 0.04 10*3/uL 0.03-0.39 BASO x10^3 (test code = 704-7) 0.07 10*3/uL 0.01-0.07 Lab Interpretation (test code = 03625-4) [id number] 19:12:00* Test Item Value Reference Range Interpretation Comme nts POCT PREG (test code = 1605) negative On board controls acceptable with C Line (test code = 3574) present POCT PREG LOT # (test code = 3575) [id number] POCT PREG TEST DATE ( test code = 3576) 06/23/2021 Lab Interpretation (test cod e = 19659-2) Normal [facility]
[2024-08-10 14:37] LABS: Specific Gravity 1.025 (1.005-1.030)
[2024-08-10 14:39] LABS: Specific Gravity 1.025 (1.005-1.030); Sqamous Epithelial <5 /HPF (None Seen); Urine Bacteria None Seen /HPF (<20); Urine Bilirubin NEGATIVE (Negative); Urine Blood 1+ (Negative); Urine Clarity Extremely Turbid (Clear); Urine Color Yellow (Yellow); Urine Culture Reflex Order REFLEXED; Urine Glucose NEGATIVE (Negative); Urine Ketones NEGATIVE (Negative); Urine Microscopic Reflex YN ORDER UMIC; Urine Mucus 2+ /HPF (None Seen); Urine Nitrite NEGATIVE (Negative); Urine Protein TRACE (Negative); Urine RBC <5 /HPF (None Seen); Urine Urobilinogen Normal (Normal); Urine pH 5.5 (5.0-7.0)
[2024-08-10 14:40] LABS: SARS-CoV-2 Antigen CONTROL BLUE LINE VIS/BG OK; SARS-CoV-2 Antigen Rapid Res Negative (Negative)
--- NOTE | 2024-08-10 15:07 | ER ---
Nurse's Notes [facility] Name: Edith Troy Age: 34 yrs Sex: Female : 1990 Arrival Date: 08/10/2024 Time: 13:43 Bed 11 Private MD: Diagnosis: Acute upper respiratory infection, unspecified Presentation: 08/10 13:55 Chief complaint: Patient states: not feeling well since Willie has cold symptoms, body iw aches, headache, she stayed home from work yesterday and needs a note to return to work. Coronavirus screen: Client presents with at least one sign or symptom that may indicate coronavirus-19. Risk Assessment: Do you want to hurt yourself or someone else? Patient reports no desire to harm self or others. 13:55 Method Of Arrival: Ambulatory iw 13:55 Acuity: TEJ 4 iw 14:10 Ebola Screen: No symptoms or risks identified at this time. Initial Sepsis Screen: Does me1 the patient meet any 2 criteria? No. Patient's initial sepsis screen is negative. Does the patient have a suspected source of infection? No. Patient's initial sepsis screen is negative. Onset of symptoms was August 06, 2024. 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 - Infectious Disease History:: Denies. - Social history:: Smoking status: Patient denies any tobacco usage or history of. Screenin:15 [facility] ED Fall Risk Assessment (Adult) History of falling in the last 3 months, me1 including since admission No falls in past 3 months (0 pts) Confusion or Disorientation No (0 pts) Intoxicated or Sedated No (0 pts) Impaired Gait No (0 pts) Mobility Assist Device Used No (0 pt) Altered Elimination No (0 pt) Score/Fall Risk Level 0 - 2 = Low Risk Maintained a safe environment, Provided non-skid footwear, Hourly rounding (assess needs \T\ fall precautionary measures) done. Abuse screen: Denies threats or abuse. Nutritional screening: No deficits noted. Tuberculosis screening: No symptoms or risk factors identified. Assessment: 14:15 General: Appears ill, well groomed, well developed, well nourished, Behavior is calm, me1 cooperative, appropriate for age, Reports not feeling well since [place] has cold symptoms, body aches, headache, she stayed home from work yesterday and needs a note to return to work. General: Reports feeling ill for > 3 days. Pain: Complains of pain in head Pain does not radiate. Pain currently is 4 out of 10 on a pain scale. Quality of pain is described as aching, Pain began gradually, 2-3 days ago. Is continuous. Neuro: Level of Consciousness is awake, alert, obeys commands, Oriented to person, place, time, situation, Appropriate for age. Cardiovascular: Patient's skin is warm and dry. Respiratory: Reports cough that is persistent nasal congestion Airway is patent Respiratory effort is even, unlabored, Respiratory pattern is regular, symmetrical. GI: No signs and/or symptoms were reported involving the gastrointestinal system. : No signs and/or symptoms were reported regarding the genitourinary system. EENT: Reports nasal congestion since Friday. Derm: Skin is intact, is healthy with good turgor, Skin is pink, warm \T\ dry. Musculoskeletal: No signs and/or symptoms reported regarding the musculoskeletal system. Vital Signs: 13:56 BP 149 / 106; Pulse 91; Resp 18; Temp 97.1; Pulse Ox 100% on R/A; Weight 99.79 kg; iw Height 5 ft. 6 in. ; Pain 8/10; 15:14 BP 123 / 83; Pulse 77; Resp 16; Temp 98.3; Pulse Ox 99% ; me1 13:56 Body Mass Index 35.51 (99.79 kg, 167.64 cm) iw 13:56 Pain Scale: Adult iw ED Course: 13:46 Patient arrived in ED. im 13:47 Alyssa Cherry FNP-C is PHCP. kb 13:47 Amilcar Rodriguez MD is Attending Physician. kb 13:52 Radha Rosales, GOMEZ is Primary Nurse. me1 13:56 Triage completed. iw 13:57 Arm band placed on. iw 14:15 Patient has correct armband on for positive identification. Bed in low position. Call me1 light in reach. Side rails up X 1. Provided Education on: POC. Verbalized understanding. . 14:15 SARS-COV-2 Antigen Rapid Sent. me1 14:15 Flu Sent. me1 14:15 COVID swab sent to lab. Flu and/or RSV swab sent to lab. me1 14:15 No provider procedures requiring assistance completed. me1 14:22 Test, Urine Sent. me1 14:22 Urinalysis w/ reflexes Sent. me1 14:22 Urine collected: clean catch specimen, cloudy. me1 15:17 Patient did not have IV access during this emergency room visit. me1 Administered Medications: No medications were administered Medication: 14:15 VIS not applicable for this client. me1 Outcome: 15:07 Discharge ordered by . shona 15:17 Discharged to home ambulatory, me1 15:17 Condition: stable 15:17 Discharge instructions given to patient, Instructed on discharge instructions, follow up and referral plans. Demonstrated understanding of instructions, follow-up care, 15:18 Patient left the ED. me1 Signatures: Alyssa Cherry, ADVISOR [employer]-C ADVISOR [employer]-Ckb Tarah Chi, RN RN iw Destiny French Michelle, RN RN me1 Corrections: (The following items were deleted from the chart) 14:11 13:55 Chief complaint: Patient states: not feeling well since Willie has cold symptoms, me1 body aches, headache, she stayed home from work yesterday and needs a note to return to work iw
--- NOTE | 2024-08-10 15:07 | EDPHYS ---
Physician Documentation [facility] Name: Edith Troy Age: 34 yrs Sex: Female : 1990 Arrival Date: 08/10/2024 Time: 13:43 Bed 11 Private MD: ED Physician Amilcar Rodriguez HPI: 08/10 15:02 This 34 yrs old Female presents to ER via Ambulatory with complaints of Flu kb Symptoms. 15:02 Pt is a 34-year-old female who presents for chills, cough, congestion, malaise and kb fatigue that started 5 days ago. Patient states she called into work yesterday and they told her she needed a work note before she could come back. States symptoms have improved. Denies fever, nausea, vomiting, diarrhea.. 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 - Infectious Disease History:: Denies. - Social history:: Smoking status: Patient denies any tobacco usage or history of. ROS: 15:02 Constitutional: As per HPI kb Exam: 15:02 Constitutional: This is a well developed, well nourished patient who is awake, alert, kb and in no acute distress. Head/Face: Normocephalic, atraumatic. ENT: Moist Mucous membranes Cardiovascular: Regular rate Respiratory: Respirations even and unlabored. No increased work of breathing. Talking in full sentences Abdomen/GI: Soft, non-tender. No distention Skin: Warm, dry with normal turgor. Normal color. MS/ Extremity: Pulses equal, no cyanosis. Neurovascular intact. Full, normal range of motion. Neuro: Awake and alert, GCS 15, oriented to person, place, time, and situation. Moves all extremities. Normal gait. Vital Signs: 13:56 BP 149 / 106; Pulse 91; Resp 18; Temp 97.1; Pulse Ox 100% on R/A; Weight 99.79 kg; iw Height 5 ft. 6 in. ; Pain 8/10; 15:14 BP 123 / 83; Pulse 77; Resp 16; Temp 98.3; Pulse Ox 99% ; me1 13:56 Body Mass Index 35.51 (99.79 kg, 167.64 cm) iw 13:56 Pain Scale: Adult iw MDM: 13:49 Patient medically screened. kb 15:03 Differential diagnosis: UTI, uri, flu, covid. Data reviewed: vital signs, nurses notes. kb Test considered but Not performed: X-ray: chest xray considered but lungs clear bilaterally, resp even and unlabored. Care significantly affected by the following Social Determinants of Health: Poor access to healthcare and/or lack of insurance. Counseling: I had a detailed discussion with the patient and/or guardian regarding the historical points, exam findings, and any diagnostic results supporting the discharge/admit diagnosis, lab results, the need for outpatient follow up, a family practitioner, to return to the emergency department if symptoms worsen or persist or if there are any questions or concerns that arise at home. 08/10 14:04 Order name: Flu; Complete Time: 15:01 kb 08/10 14:04 Order name: SARS-COV-2 Antigen Rapid; Complete Time: 15:01 kb 08/10 14:04 Order name: Test, Urine; Complete Time: 15:01 kb 08/10 14:04 Order name: Urinalysis w/ reflexes; Complete Time: 15:01 kb 08/10 14:43 Order name: Urine Culture EDMS Administered Medications: No medications were administered Disposition Summary: 08/10/24 15:07 Discharge Ordered Notes: Location: Home kb Condition: Stable kb Diagnosis - Acute upper respiratory infection, unspecified kb Followup: kb - With: Emergency Department - When: As needed - Reason: Worsening of condition Followup: kb - With: Private Physician - When: 2 - 3 days - Reason: Recheck today's complaints, Continuance of care, Re-evaluation by your physician Discharge Instructions: - Discharge Summary Sheet kb - Upper Respiratory Infection, Adult, [id number]-gb-Vjds kb - Viral Respiratory Infection, Pcev-Fo-Mpyk kb Forms: - Work release form kb - Patient Portal Instructions kb - Leadership Thank You Letter kb Signatures: Dispatcher [employer] Alyssa Arteaga, DEBBIE KEATING-aTrah Krishna RN RN iw
[2024-08-10 15:24] VITALS: BP 123/83; TEMP 98.3; O2SAT 99
== END 2024-08-10 15:18 | disposition home or self-care (01) ==
LOC: ER 13:43
DX: J06.9 Acute upper respiratory infection, unspecified (principal); Z11.52 Encounter for screening for COVID-19
CPT/HCPCS: 36415; 81001; 81025; 87086; 87088; 87804; 87811; 99283

== ENCOUNTER 2024-11-11 10:16 | Emergency (ER) | payer SELFPAY ==
--- OUTSIDE RECORDS SUMMARY | 2024-11-11 10:19 | XMS REPORT | Continuity of Care Document ---
Author Name Unknown Address [address] [place] [address] [facility] thconnect Address 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 Role Phone Pcp, Patient Does Not Have A Primary Care Physic maryann AKIN POWELL Attending Clinician Unavail AKIN Saini Attending Clinician Unavail kAin Saini MD Attending Clinician Mayela Chi DO Attending Clinician [phone] Vernon Berman DO Attending Clinician [phone] [facility], Acute [facility] Attending Clinician Unav Frederick Duval Attending Clinician Doctor Unassigned, [place] Attending Clinician U navailable KIRTI CARRIZALES Attending Clinician Unavailable Kirti Martin Attending Clinician [phone] Payers Payer Name Policy Type Policy Number [...] no record of an abnormal pap here. [facility] General counseling for initiation of other contracept kojo measures General counseling for initiation of other contracept kojo measures Disease Active 03-17 00:00: 00 [facility] Allergies, Adverse Reactions, Alerts Allergy Name Allergy Type Status Severity Reaction(s) Onset Date Inactive Date Treating Clinician Comments Source NO KNOWN ALLERGIE S Drug Class Active [facility] Social History Social Habit Start Date Stop Date Quantity Comments [facility] of Social function 2023-12-16 00:00:00 2023-12-16 00:00:00 [facility] Alcoholic beverage intake 2023-12-16 00:00:00 2023-12-16 00:00:00 Current non-drinker of alcohol (finding) [facility] Exposure to SARS-CoV-2 (event) 2021-06-24 00:00:00 2021-07-24 08:29:00 Not sure [facility] Alcohol intake 2020-06-05 00:00:00 2020-06-05 00:00:00 Current non-drinker of alcohol (finding) [facility] Tobacco use and exposure 2014-03-17 00:00:00 2014-03-17 00:00:00 Smokeless tobacco non-user [facility] Sex assigned at 1990 00:00:00 1990 00:00:00 [facility] Smoking Status Start Date Stop Date Source Never smoked tobacco [facility] Medications Ordered Medication Name Filled Medication Name Start Date Stop Date Current Medication? Ordering Clinician Indication Dosage Frequency Signature (SIG) Comments Components Source NaCl 0.9% (NS) bolus infusion 1,000 mL 07-24 20:15: 00 07-24 20:25 :00 No 1000mL at 999 mL/hr, 1,000 mL, IV Infusion, ONCE, 1 dose, 07/24/20 at 1515, STAT [facility] ondansetron 4 mg disintegrat ing tablet 07-24 00:00: 00 Yes [id number] 4mg Take 1 tablet by mouth every 8 (eight) hours as needed for Nausea and Vomiting (N/V). [facility] cephALEXin (KEFLEX) 500 mg capsule 07-24 00:00: 00 08-01 04:59 :00 No [id number] 500mg Take 1 capsule by mouth 3 (three) times daily for 7 days. [facility] methylPREDN ISolone (MEDROL, KEHINDE,) 4 mg tablets 04-14 00:00: 00 Yes Take by mouth SEE-INSTRU CTIONS. follow package directions [facility] naproxen (NAPROSYN) 500 mg tablet 04-14 00:00: 00 Yes 500mg Take 1 tablet by mouth 2 (two) times daily with meals. [facility] Immunizations Ordered Immunization Name Filled Immunization Name Date Status Comments Source Rubella 2010-08-06 00:00:00 Completed [facility] Rubella 2010-08-06 00:00:00 Completed Rubella 2010-08-06 00:00:00 Completed [facility] Rubella 2010-08-06 00:00:00 Completed [facility] Rubella 2010-08-06 00:00:00 Completed [facility] Rubella 2010-08-06 00:00:00 Completed [facility] Rubella 2010-08-06 00:00:00 Completed [facility] Td 2004-11-24 00:00:00 Completed [facility] TD, NOS 2004-11-24 00:00:00 Completed Td 2004-11-24 00:00:00 Completed [facility] Td 2004-11-24 00:00:00 Completed [facility] Td 2004-11-24 00:00:00 Completed [facility] Td 2004-11-24 00:00:00 Completed [facility] Td 2004-11-24 00:00:00 Completed [facility] Rubella Unknown Completed [facility] TD, NOS Unknown Completed [facility] Vital Signs Vital Name Observation Time Observation Value Comments S monique Body height 2024-11-10 18:32:00 167.6 cm [facility] Body weight 2024-11-10 18:32:00 99.791 kg [facility] BMI 2024-11-10 18:32:00 35.51 kg/m2 [facility] Systolic blood pressure 2024-11-10 18:30:00 166 mm[Hg] [facility] Diastolic blood pressure 2024-11-10 18:30:00 98 mm[Hg] [facility] Heart rate 2024-11-10 18:30:00 95 /min [facility] Body temperature 2024-11-10 18:30:00 36.89 Buffy [facility] Respiratory rate 2024-11-10 18:30:00 18 /min [facility] Oxygen saturation in Arterial blood by Pulse oximetry 2024-11-10 18:30:00 97 /min [facility] Systolic blood pressure 2021-07-24 13:30:00 129 mm[Hg] [facility] Diastolic blood pressure 2021-07-24 13:30:00 94 mm[Hg] [facility] Heart rate 2021-07-24 13:30:00 80 /min [facility] Body temperature 2021-07-24 13:30:00 36.44 Buffy [facility] Respiratory rate 2021-07-24 13:30:00 18 /min [facility] Oxygen saturation in Arterial blood by Pulse oximetry 2021-07-24 13:30:00 99 /min [facility] Systolic blood pressure 2020-07-24 19:30:00 104 mm[Hg] [facility] Diastolic blood pressure 2020-07-24 19:30:00 79 mm[Hg] [facility] Heart rate 2020-07-24 19:30:00 93 /min [facility] Respiratory rate 2020-07-24 19:30:00 18 /min [facility] Oxygen saturation in Arterial blood by Pulse oximetry 2020-07-24 19:30:00 98 /min [facility] Body temperature 2020-07-24 18:31:00 37.22 Buffy [facility] Body height 2020-07-24 18:31:00 167.6 cm [facility] Body weight 2020-07-24 18:31:[address] [facility] BMI 2020-07-24 18:31:00 34.70 kg/m2 [facility] Systolic blood pressure 2020-07-24 19:30:00 104 mm[Hg] [facility] Diastolic blood pressure 2020-07-24 19:30:00 79 mm[Hg] [facility] Heart rate 2020-07-24 19:30:00 93 /min [facility] Respiratory rate 2020-07-24 19:30:00 18 /min [facility] Oxygen saturation in Arterial blood by Pulse oximetry 2020-07-24 19:30:00 98 /min [facility] Body temperature 2020-07-24 18:31:00 37.22 Buffy [facility] Body height 2020-07-24 18:31:00 167.6 cm [facility] Body weight 2020-07-24 18:31:00 97.523 kg [facility] BMI 2020-07-24 18:31:00 34.70 kg/m2 [facility] Systolic blood pressure 2020-06-05 19:43:00 117 mm[Hg] [facility] Diastolic blood pressure 2020-06-05 19:43:00 79 mm[Hg] [facility] Heart rate 2020-06-05 19:43:00 82 /min [facility] Body temperature 2020-06-05 19:43:00 36.94 Buffy [facility] Respiratory rate 2020-06-05 19:43:00 98 /min [facility] Body height 2020-06-05 19:43:[address] [facility] Body weight 2020-06-05 19:43:00 95.255 kg [facility] BMI 2020-06-05 19:43:00 33.89 kg/m2 [facility] Systolic blood pressure 2020-06-05 19:43:00 117 mm[Hg] [facility] Diastolic blood pressure 2020-06-05 19:43:00 79 mm[Hg] [facility] Heart rate 2020-06-05 19:43:00 82 /min [facility] Body temperature 2020-06-05 19:43:00 36.94 Buffy [facility] Respiratory rate 2020-06-05 19:43:00 98 /min [facility] Body height 2020-06-05 19:43:00 167.6 cm [facility] Body weight 2020-06-05 19:43:00 95.255 kg [facility] BMI 2020-06-05 19:43:00 33.89 kg/m2 [facility] Procedures Procedure Date / Time Performed Performing Clinicia n Source NOTICE OF PRIVACY PRACTICES 2021-07-24 13:17:53 Doctor Unassigned, [place] [facility] CONSENT/REFUSAL FOR DIAGNOSIS AND TREATMENT 2021-07-24 13:11:03 Doctor Unassigned, [place] [facility] COMP. METABOLIC PANEL ([id number]) 2020-07-24 19:13:00 Vernon Berman [facility] CBC WITH DIFF 2020-07-24 19:13:[address] [facility] URINALYSIS 2020-07-24 [facility] 2020-07-24 19:12:00 Stacy Berman [facility] NOTICE OF PRIVACY PRACTICES 2020-07-24 18:24:44 Doctor Unassigned, [place] [facility] CONSENT/REFUSAL FOR DIAGNOSIS AND TREATMENT 2020-07-24 18:24:30 Doctor Unassigned, [place] [facility] Encounters Start Date/Time End Date/Time Encounter Type Admission Type Attending Clinicians Care Facility Care Department Encounter ID Source 2021-09-24 19:14:49 Emergency [facility] [id number] [facility] 2021-09-21 15:01:14 Emergency [facility] [id number] [facility] 2024-11-10 12:32:00 2024-11-10 13:12:00 Emergency AKIN DUMONT [facility] ERT [id number] [facility] 2024-11-10 12:32:00 2024-11-10 13:12:00 Emergency Akin Powell [facility] [id number] [id number] [id number] [facility] 2021-07-24 08:34:00 2021-07-24 08:45:00 Emergency Mayela Chi [facility] [id number] [id number] [id number] [facility] 2020-07-24 13:33:00 2020-07-24 15:32:00 Emergency Vernon Berman [facility] [id number] [id number] 4.2.7.2.686 [id number] 2020-07-24 13:33:00 2020-07-24 15:32:00 Emergency Singer Vernon [facility] [id number] [id number] 4.2.7.2.686 [id number] [facility] 2020-06-07 00:00:00 2020-06-07 00:00:00 Telephone [facility] 1.840.114 [id number] 4.2.7.2.686 [id number] 2020-06-07 00:00:00 2020-06-07 00:00:00 Telephone Frederick Suarez [facility] 1.840.114 350.1.13.10 4.2.7.2.686 [id number] 2020-06-07 00:00:00 2020-06-07 00:00:00 Patient Secure Msg Doctor Unassigned, [place] [facility] OFF[facility] BUILD[facility] [id number] 350.1.13.10 4.2.7.2.686 [id number] [facility] 2020-06-07 00:00:00 2020-06-07 00:00:00 Telephone Pob[facility], Acute Care Clinic [facility] [id number] 350.1.13.10 4.2.7.2.686 [id number] [facility] 2020-06-07 00:00:00 2020-06-07 00:00:00 Telephone Frederick Suarez [facility] 1.20.114 350.1.13.10 4.2.7.2.686 [id number] [facility] 2020-06-06 08:00:00 2020-06-06 08:00:00 Outpatient R HEMAKIRTI [facility] [id number] [facility] 2020-06-05 15:00:00 2020-06-05 15:00:00 Outpatient R [facility] [id number] [facility] 2020-06-05 14:40:00 2020-06-05 15:00:00 Urgent Care Pob1, Acute Care Clinic [facility] 1.20.114 350.1.13.10 4.2.7.2.686 [id number] 2020-06-05 14:40:00 2020-06-05 15:00:00 Urgent Care Pob1, Acute Care Clinic Kirti Carrizales [facility] 1.20.114 350.1.13.10 4.2.7.2.686 [id number] [facility] 2020-06-05 00:00:00 2020-06-05 00:00:00 Letter (Out) HemaKirti [facility] 1.20.114 350.1.13.10 4.2.7.2.686 [id number] 2020-06-05 00:00:00 2020-06-05 00:00:00 Letter (Out) Kirti Carrizales [facility] [id number] [id number] 4.2.7.2.686 [id number] [facility] Results Test Description Test Time Test Comments Results Result Co mments Source [facility]29:00* Test Item Value Reference Range Interpretation Comme nts APPEARANCE (test code = 8658917647) Hazy Clear A COLOR (test code = 9945840509) Kia Yellow A PH (test code = 4410009461) 4.8-8.0 SP GRAVITY (test code = 8551318976) 1.003-1.030 GLU U QUAL (test code = 6620363314) Normal Normal BLOOD (test code = 5837397246) Negative Negative KETONES (test code = 3509263423) 20 mg/dL Negative A PROTEIN (test code = 2887-8) 30 mg/dL Negative A UROBILIN (test code = 9778573261) 2.0 mg/dL Normal A BILIRUBIN (test code = 7209301821) Negative Negative NITRITE (test code = 3001312599) Negative Negative LEUK CEASAR (test code = 3193474511) 500/uL Negative A RBC/HPF (test code = 4388714379) See_Comment H [Automated messa ge] The system which generated this result transmitted reference range: 0 - 3 HPF. The reference range was not used to interpret this result as normal/abnormal. WBC/HPF (test code = 8734438854) See_Comment H [Automated messa ge] The system which generated this result transmitted reference range: 0 - 5 HPF. The reference range was not used to interpret this result as normal/abnormal. BACTERIA (test code = 3679489474) Moderate Negative A MUCOUS (test code = 0773995417) Marked Negative LPF A SQ EPITH (test code = 5350813899) HPF Lab Interpretation (test code = 61524-4) Abnormal [facility] [id number] 19:24:00* Test Item Value Reference Range Interpretation [...] 33.1 g/dL 31.6-35.1 RDW-SD (test code = 95977-6) 39.8 fL 39-49.9 RDW-CV (test code = 788-0) 12.8 % 12-15.5 PLT (test code = 777-3) See_Comment H [Automated messa ge] The system which generated this result transmitted reference range: 166 - 358 10*3/?L. The reference range was not used to interpret this result as normal/abnormal. MPV (test code = 22184-2) 10.2 fL 9.5-12.9 NRBC/100 WBC (test code = 8820333154) See_Comment [Automated Mitralign ssage] The system which generated this result transmitted reference range: 0.0 - 10.0 /100 WBCs. The reference range was not used to interpret this result as normal/abnormal. NRBC x10^3 (test code = 1002440913) <0.01 See_Comment [Automated messa ge] The system which generated this result transmitted reference range: 10*3/?L. The reference range was not used to interpret this result as normal/abnormal. GRAN MAT (NEUT) % (test code = 770-8) 70.5 % IMM GRAN % (test code = 1689701933) 0.30 % LYMPH % (test code = 736-9) 21.5 % MONO % (test code = 5905-5) 6.6 % EOS % (test code = 713-8) 0.4 % BASO % (test code = 706-2) 0.7 % GRAN MAT x10^3(ANC) (test code = 4916584142) 7.20 10*3/uL 1.88-7.09 H IMM GRAN x10^3 (test code = 6177627206) 0.03 10*3/uL 0-0.06 LYMPH x10^3 (test code = 731-0) 2.20 10*3/uL 1.32-3.29 MONO x10^3 (test code = 742-7) 0.67 10*3/uL 0.33-0.92 EOS x10^3 (test code = 711-2) 0.04 10*3/uL 0.03-0.39 BASO x10^3 (test code = 704-7) 0.07 10*3/uL 0.01-0.07 Lab Interpretation (test code = 04628-1) Abnormal [facility] [id number] 19:12:00* Test Item Value Reference Range Interpretation Comme nts POCT PREG (test code = 1605) negative On board controls acceptable with C Line (test code = 3574) present POCT PREG LOT # (test code = 3575) [id number] POCT PREG TEST DATE ( test code = 3576) 06/23/2021 Lab Interpretation (test cod e = 60801-0) Normal [facility]
--- NOTE | 2024-11-11 10:50 | ER ---
Nurse's Notes [facility] Name: Edith Troy Age: 34 yrs Sex: Female : 1990 Arrival Date: 11/11/2024 Time: 10:16 Bed 8 Private MD: Diagnosis: Rectal pain, hemorrhoids Presentation: 11/11 10:35 Chief complaint: Patient states: RECTAL PAIN WITH DRAINAGE AND BLEEDING WITH BOWEL db MOVEMENT X 2 DAYS. HX OF HEMORRHOIDS AND FEELS WORSE. Coronavirus screen: Client denies travel out of the [place] in the last 14 days. At this time, the client does not indicate any symptoms associated with coronavirus-19. Ebola Screen: Patient negative for fever greater than or equal to 101.5 degrees Fahrenheit, and additional compatible Ebola Virus Disease symptoms Patient denies exposure to infectious person. Patient denies travel to an Ebola-affected area in the 21 days before illness onset. No symptoms or risks identified at this time. Initial Sepsis Screen: Does the patient meet any 2 criteria? No. Patient's initial sepsis screen is negative. Does the patient have a suspected source of infection? No. Patient's initial sepsis screen is negative. Risk Assessment: Do you want to hurt yourself or someone else? Patient reports no desire to harm self or others. Onset of symptoms was November 09, 2024. 10:35 Method Of Arrival: Ambulatory db 10:35 Acuity: TEJ 3 db Triage Assessment: 10:35 General: Appears uncomfortable, Behavior is calm, cooperative. Pain: Complains of pain db in buttocks. GI: Abdomen is flat, non-distended, Reports rectal bleeding. 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 - Infectious Disease History:: Denies. - Social history:: Smoking status: Patient denies any tobacco usage or history of. Screenin:59 [facility] ED Fall Risk Assessment (Adult) History of falling in the last 3 months, ll1 including since admission No falls in past 3 months (0 pts) Confusion or Disorientation No (0 pts) Intoxicated or Sedated No (0 pts) Impaired Gait No (0 pts) Mobility Assist Device Used No (0 pt) Altered Elimination No (0 pt) Score/Fall Risk Level 0 - 2 = Low Risk Maintained a safe environment, Hourly rounding (assess needs \T\ fall precautionary measures) done. Abuse screen: Denies threats or abuse. Nutritional screening: No deficits noted. Tuberculosis screening: No symptoms or risk factors identified. Assessment: 10:21 General: Appears uncomfortable, Behavior is calm, cooperative, appropriate for age. ll1 Pain: Complains of pain in rectal Quality of pain is described as aching. GI: large tender hemorrhoid with exam by Dr. Hudson Bowel sounds present X 4 quads. Abd is soft and non tender X 4 quads. Reports rectal bleeding, hemorrhoids. Vital Signs: 10:35 BP 157 / 88; Pulse 90; Resp 16; Temp 97.9(TE); Pulse Ox 97% ; Weight 99.79 kg; Height 5 db ft. 6 in. ; Pain 7/10; 10:35 Body Mass Index 35.51 (99.79 kg, 167.64 cm) db 10:35 Pain Scale: Adult db ED Course: 10:19 Patient arrived in ED. ra3 10:21 Marli Hudson MD is Attending Physician. sp3 10:34 Chiqui Raymond RN is Primary Nurse. ll1 10:37 Arm band placed on Patient placed in an exam room, on a stretcher. ll1 10:40 Warm blanket given. sa1 10:41 Triage completed. 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 Patient did not have IV access during this ll1 emergency room visit. 10:50 Malik Saha MD is Referral Physician. sp3 10:59 Patient has correct armband on for positive identification. Provided Education on: ER ll1 procedures and process. Administered Medications: No medications were administered Medication: 10:59 VIS not applicable for this client. ll1 Outcome: 10:50 Discharge ordered by . sp3 10:59 Discharged to home ambulatory, ll1 10:59 Condition: stable 10:59 Discharge instructions given to patient, Instructed on discharge instructions, follow up and referral plans. Demonstrated understanding of instructions, follow-up care, 11:00 Patient left the ED. ll1 Signatures: Chiqui Raymond RN RN ll1 Marli Hudson MD MD sp3 Italia Bagley, RN RN db Clarice George ra3 Sultan Carlos Enrique [facility]
--- NOTE | 2024-11-11 10:50 | EDPHYS ---
Physician Documentation [facility] Name: Edith Troy Age: 34 yrs Sex: Female : 1990 Arrival Date: 11/11/2024 Time: 10:16 Bed 8 Private MD: ED Physician Marli Hudson HPI: 11/11 10:43 This 34 yrs old Female presents to ER via Ambulatory with complaints of sp3 Constipation - 3-4 days with blood in stool. 10:43 34-year-old female with history of migraine headaches presents with rectal pain, pain sp3 with defecation and mild blood on toilet paper when wiping. Symptoms been going on for 3 to 4 days. No prior history of hemorrhoids reported. Review of systems otherwise negative for fever, chest pain, shortness of breath, abdominal pain, vomiting, diarrhea, syncope or any other signs or symptoms on ROS at this time.. 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 - Infectious Disease History:: Denies. - Social history:: Smoking status: Patient denies any tobacco usage or history of. ROS: 10:44 Constitutional: Negative for fever, chills, and weight loss, Eyes: Negative for injury, sp3 pain, redness, and discharge, ENT: Negative for injury, pain, and discharge, Neck: Negative for injury, pain, and swelling, Cardiovascular: Negative for chest pain, palpitations, and edema, Respiratory: Negative for shortness of breath, cough, wheezing, and pleuritic chest pain, Back: Negative for injury and pain, MS/Extremity: Negative for injury and deformity, Skin: Negative for injury, rash, and discoloration, Neuro: Negative for headache, weakness, numbness, tingling, and seizure, Psych: Negative for depression, anxiety, suicide ideation, homicidal ideation, and hallucinations, Allergy/Immunology: Negative for hives, rash, and allergies, Endocrine: Negative for neck swelling, polydipsia, polyuria, polyphagia, and marked weight changes, 10:44 All other systems are negative, Exam: 10:47 Constitutional: This is a well developed, well nourished patient who is awake, alert, sp3 and in no acute distress. Head/Face: Normocephalic, atraumatic. Neck: Trachea midline, no thyromegaly or masses palpated, and no cervical lymphadenopathy. Supple, full range of motion without nuchal rigidity, or vertebral point tenderness. No Meningismus. Chest/axilla: Normal chest wall appearance and motion. Nontender with no deformity. No lesions are appreciated. Cardiovascular: Regular rate and rhythm with a normal S1 and S2. No gallops, murmurs, or rubs. Normal PMI, no JVD. No pulse deficits. Respiratory: Lungs have equal breath sounds bilaterally, clear to auscultation and percussion. No rales, rhonchi or wheezes noted. No increased work of breathing, no retractions or nasal flaring. Abdomen/GI: Soft, non-tender, with normal bowel sounds. No distension or tympany. No guarding or rebound. No evidence of tenderness throughout. Back: No spinal tenderness. No costovertebral tenderness. Full range of motion. Skin: Warm, dry with normal turgor. Normal color with no rashes, no lesions, and no evidence of cellulitis. MS/ Extremity: Pulses equal, no cyanosis. Neurovascular intact. Full, normal range of motion. Neuro: Awake and alert, GCS 15, oriented to person, place, time, and situation. Cranial nerves II-XII grossly intact. Motor strength 5/5 in all extremities. Sensory grossly intact. Cerebellar exam normal. Normal gait. Psych: Awake, alert, with orientation to person, place and time. Behavior, mood, and affect are within normal limits. 10:47 : Patient has nonthrombosed large hemorrhoid at 9 o'clock position. No active bleeding noted. Area is painful. No signs of perirectal abscess noted. No active bleeding or melena., Vital Signs: 10:35 BP 157 / 88; Pulse 90; Resp 16; Temp 97.9(TE); Pulse Ox 97% ; Weight 99.79 kg; Height 5 db ft. 6 in. ; Pain 7/10; 10:35 Body Mass Index 35.51 (99.79 kg, 167.64 cm) db 10:35 Pain Scale: Adult db MDM: 10:24 Medical Screening Exam initiated sp3 10:48 Data reviewed: vital signs, nurses notes. ED course: 34-year-old female with rectal sp3 pain. Differential diagnosis includes hemorrhoid which I think is her definitive diagnosis. Clinically I have ruled out perirectal abscess, GI bleed or any other critical pathology. We will safely discharge her home with stool softeners and follow-up with general surgery.. Administered Medications: No medications were administered Disposition Summary: 11/11/24 10:50 Discharge Ordered Notes: Location: Home sp3 Condition: Stable sp3 Diagnosis - Rectal pain, hemorrhoids sp3 Followup: sp3 - With: Malik Saha MD - When: Upon discharge from the Emergency Department - Reason: Recheck today's complaints Discharge Instructions: - Discharge Summary Sheet ll1 - Hemorrhoids sp3 Forms: - Work release form ll1 - Medication Reconciliation Form sp3 - Antibiotic Education sp3 - Prescription Opioid Use sp3 - Patient Portal Instructions sp3 - Leadership Thank You Letter sp3 Signatures: Marli Hudson MD MD sp3 Italia Bagley RN RN db
[2024-11-11 11:13] VITALS: BP 157/88; TEMP 97.9; O2SAT 97
== END 2024-11-11 11:00 | disposition home or self-care (01) ==
LOC: ER 10:16
DX: K64.9 Unspecified hemorrhoids (principal); K59.00 Constipation, unspecified; K92.1 Melena; G43.909 Migraine, unspecified, not intractable, without status migrainosus; K62.89 Other specified diseases of anus and rectum
CPT/HCPCS: 99283